=== PATIENT | male | born 1930 | race Caucasian/White ===

== ENCOUNTER 2016-12-24 10:47 | Observation (INO) | payer OTHER ==
[~2016-12-24] VITALS: Ht 175.3 cm; Wt 74.8 kg
[~2016-12-24 10:47] MED LIST: AMIODARONE HCL200 M1 PO; ARICEPT10 M1 PO; CALCIUM + D 5001 TAB PO; CARBIDOPA-LEVO1 EAC7 PO; CHILDREN'S ASPI81 M1 PO; CLOPIDOGREL75 M1 PO; FINASTERIDE5 M1 PO; HEPARIN 2525000 UNI1 IV; LOPRESSOR 25MG25 MG PO; LOPRESSOR 6.26.25 MG PO; METOPROLOL TART25 M1 PO; RETAINE CMC 0.5% OP; SAW PALMETTO S450 MG PO; SEROQUEL 100MG100 MG PO; SEROQUEL 25MG25 MG PO; SIMVASTATIN40 M1 PO; SLOW-MAG71.5 MG PO; SYNTHROID0.025 MG PO; SYNTHROID50 MCG PO; TEARS NATURALE1 EACH OP; VITAMIN D31000 UNI1 PO
--- NOTE | 2016-12-24 10:50 | ED SYNCOPE COMPLAINT ---
History of Present Illness General Chief Complaint: Syncope and Near-Syncope Stated Complaint: SYNCOPAL EPISODE Source: patient Exam Limitations: dementia Vital Signs & Intake/Output Vital Signs & Intake/Output Vital Signs Date Time Temp Pulse Resp B/P Pulse O2 O2 Flow FiO2 Ox Delivery Rate 12/27 1133 82 130/62 12/27 0916 78 130/62 12/27 0827 98.0 76 20 160/88 94 Room Air 12/26 2200 98.2 67 20 150/70 95 Room Air 12/26 1542 98.1 59 18 126/72 96 Room Air ED Intake and Output 12/27 0000 12/26 1200 Intake Total 580 Output Total 100 200 Balance 480 -200 Intake, Oral 580 Output, Urine 100 200 Allergies Coded Allergies: Sulfa (Sulfonamide Antibiotics) (SULFA - ?RXN DOESNT REMEMBER 12/24/16) dipyridamole (From AGGRENOX) (UNKNOWN DOESNT REMEMBER 12/24/16) Reconcile Medications Amiodarone HCl 200 MG TABLET 0.5 TAB PO DAILY HEART (Reported) Aspirin (Children's Aspirin) 81 MG TAB.CHEW 1 TAB PO DAILY HEART/BLOOD ( Reported) Calcium Carbonate/Vitamin D3 (Calcium 500 + D Tablet) (Unknown Strength) TABLET (Unknown Dose) PO DAILY SUPPLEMENT (Reported) Carbidopa/Levodopa (Carbidopa-Levodopa 25-100 Tab) 25 MG-100 MG TABLET 1.5 TAB PO DAILY PARKINSONS (Reported) Cholecalciferol (Vitamin D3) (Vitamin D3) 1,000 UNIT CAPSULE 1 CAP PO DAILY SUPPLEMENT (Reported) Clopidogrel Bisulfate (Clopidogrel) 75 MG TABLET 1 TAB PO DAILY BLOOD THINNER (Reported) Dextran 70/Hypromellose/Pf (Tears Naturale Free Drops) 0.1 %-0.3 % DROPERETTE 2 DROP OP DAILY EYE(S) (Reported) Donepezil HCl (Aricept) 10 MG TABLET 1 TAB PO QHS DEMENTIA (Reported) Finasteride 5 MG TABLET 1 TAB PO DAILY PROSTATE (Reported) Levothyroxine Sodium (Synthroid) 50 MCG TABLET 1 TAB PO DAILY THYROID ( Reported) Magnesium Chloride (Slow-Mag) (Unknown Strength) TABLET.DR 1 TAB PO DAILY SUPPLEMENT (Reported) Metoprolol Tartrate 25 MG TABLET 0.5 TAB PO DAILY HEART (Reported) Midodrine HCl 10 MG TABLET 1 TAB PO BID LOW BP (Reported) Multivitamin W/Iron, Minerals (Spectravite Senior) 1 EACH TABLET 1 TAB PO DAILY SUPPLEMENT (Reported) Quetiapine Fumarate 50 MG TABLET 1 TAB PO TID MENTAL HEALTH (Reported) Saw Mckee Fruit (Saw Mckee) 450 MG CAPSULE 1 CAP PO DAILY Supplement ( Reported) Simvastatin (Simvastatin*) 40 MG TABLET 1 TAB PO QPM CHOLESTEROL (Reported) Triage Nurses Notes Reviewed? yes HPI: This patient is a 86-year-old male with a past medical history including CABG, myocardial infarction, Alzheimer's, Parkinson's, and hypertension who presented to the emergency department today brought in by ambulance accompanied by his and daughter for evaluation of syncopal episode. The patient's reported that he had gotten up to go to the bathroom and made around to the back of the chair when he slid to the floor. At that time he did not lose consciousness. His reported that she helped him up and sat him down in the chair. She left to go get him some orange juice and when she returned he had slid out of the chair and lost consciousness. The patient reported that he was feeling dizzy and shaky just prior to the incident. He reported a mild frontal headache at this time. He denied any visual changes, chest pain, palpitations, difficulty breathing, abdominal pain, nausea, vomiting, or any numbness or tingling in his extremities. The patient's daughter reported that he has been feeling more dizzy than normal recently, but has not had any syncopal episodes similar to this in the past. (CECI BRYANT PA-C) Past History Medical History Any Pertinent Medical History? see below for history Neurological: Alzheimer's disease, Parkinson's disease, vertigo EENT: cataracts, glaucoma Cardiovascular: hypertension, hyperlipidemia, LVH Respiratory: pneumonia Gastrointestinal: BPH diverticulosis Hepatic: NONE Renal: chronic kidney disease (stage 1) Musculoskeletal: osteoarthritis Psychiatric: NONE Endocrine: hypothyroidism, vitamin D deficiency Blood Disorders: anemia Cancer(s): colon/rectal cancer SOCIAL PROBLEMS SPECIALIST/Reproductive: NONE History of MRSA: No History of VRE: No History of CDIFF: No Surgical History Surgical History: CABG, cataract removal (both eyes), hernia repair-incisional, anal fistula repair Psychosocial History Who do you live with Family Services at Home None What is your primary language Colombian Family History Hx Contributory? No (CECI BRYANT PA-C) Review of Systems Review of Systems Constitutional: Reports: see HPI. EENTM: Reports: no symptoms. Respiratory: Reports: no symptoms. Cardiovascular: Reports: no symptoms. GI: Reports: no symptoms. Genitourinary: Reports: no symptoms. Musculoskeletal: Reports: no symptoms. Skin: Reports: no symptoms. Neurological/Psychological: Reports: see HPI. All Other Systems: Reviewed and Negative (CECI BRYANT PA-C) Physical Exam Physical Exam Cranial Nerves: normal hearing, normal speech, PERRL Comments: Well-developed well-nourished person in no acute distress HEENT: Normal EENT exam, head normocephalic, no bony deformities/step-offs of the skull, moist mucous membranes PERRLA bilaterally Nose is atraumatic Neck: Supple, no lymphadenopathy. No midline tenderness Back: Normal inspection Cardiovascular: Regular rate and rhythm with no murmurs, rubs, or gallops. No JVD. No carotid bruits Respiratory: Chest nontender. No respiratory distress. Breath sounds clear to auscultation bilaterally with no wheezes, rales, rhonchi Abdomen: Soft, nontender and nondistended with normoactive bowel sounds and no organomegaly appreciated Extremity: No edema, no calf tenderness to palpation, normal and equal pulses. Neuro: Alert oriented x3, motor sensory normal, cranial nerves II through XII grossly intact. Skin: No appreciable rash on exposed skin, skin is warm and dry. Skin tear, approximately 2 cm in diameter, to the left lateral epicondyle with no active bleeding and no stony erythema or edema. Mild amount of surrounding ecchymosis Psych: Mood and affect is normal Core Measures ACS in differential dx? Yes CVA/TIA Diagnosis: No Severe Sepsis Present: No Septic Shock Present: No (CECI BRYANT PA-C) Progress Differential Diagnosis: AMI, aortic dissection, aortic valve, drug induced syncope, hyperventilation, orthostatic syncope, other valvular disease, pericardial tamponade, pulmonary embolus, seizure, sick sinus syndrome, subarachnoid hem., TIA/CVA, vasodepressor syncope, ventricular tach/fib Plan of Care: Orders Procedure Date/time Status US-RENAL/KIDNEY 12/27 UNK Active PT Evaluate & Treat 12/27 UNK Active Lab Add-on Test 12/27 UNK Active MISTAKE 12/27 UNK Complete Nursing Misc 12/[address] ABD & PELVIS W/O IV CONTRAS 12/27 UNK Active Discontinue Telemetry/Monitor 12/26 UNK Active Current Medications Sig/Rajani Start time Last Medication Dose Stop Time Status Admin Acetaminophen 650 MG Q8P PRN 12/24 1915 AC (Tylenol) Diagnostic Imaging: Viewed by Me: Radiology Read, CT Scan. Discussed w/RAD: Radiology Read, CT Scan. Radiology Impression: PATIENT: CORDELL DOMINIQUE SR PRESENT AGE: 86 PATIENT ACCOUNT NO: [id number] : 31 LOCATION: [facility] ORDERING PHYSICIAN: CECI BRYANT PA-C SERVICE DATE: 12/24/16 EXAM TYPE: RAD - XRY-PORTABLE CHEST XRAY EXAMINATION: XR PORTABLE CHEST CLINICAL INFORMATION: Syncope. Assess for cardiomegaly. COMPARISON: Report from chest radiography 08/09/2015. TECHNIQUE: Portable AP view of the chest was obtained. FINDINGS: The lungs are well expanded. No focal consolidation, pleural effusion, pulmonary edema, or pneumothorax. No evidence of cardiomegaly when adjusting for technical factors. Aortic atherosclerotic calcification. Sternotomy wires. No acute osseous abnormality. IMPRESSION: No acute pulmonary pathology demonstrated. DICTATED BY: DANO LIN MD DATE/TIME DICTATED:12/24/161144 MORTGAGE COUNSELOR:YOBANI DATE/TIME TRANSCRIBED:12/24/161144 CONFIDENTIAL, DO NOT COPY WITHOUT APPROPRIATE AUTHORIZATION. <Electronically signed in Other Vendor System> SIGNED BY: DANO LIN MD 12/24/16 1150, PATIENT: CORDELL DOMINIQUE PRESENT AGE: 86 PATIENT ACCOUNT NO: [id number] : 31 LOCATION: [facility] ORDERING PHYSICIAN: CECI BRYANT PA-C SERVICE DATE: 12/24/16 EXAM TYPE: CAT - CT CERV SPINE WO IV CONTRAST; CT HEAD WO IV CONTRAST EXAMINATION: CT HEAD AND CERVICAL SPINE. CLINICAL INFORMATION: Fall. Evaluate for intracranial hemorrhage. Evaluate for cervical spine fracture. COMPARISON: Brain MRI 01/05/2012. CT head 08/24/2008. TECHNIQUE: Geophysical Prospecting Permit Agent images were obtained. CT acquisition of the head and cervical spine was performed without intravenous administration of contrast. Data was reformatted into multiplanar images at the acquisition workstation. DLP: 934.86 mGy-cm. FINDINGS: Head: There is no acute intracranial hemorrhage or abnormal extra axial collection. No intracranial mass effect or midline shift. Lateral and third ventricles are proportionate to the subarachnoid spaces. There is no hydrocephalus. Ill-defined foci of hypoattenuation are visualized throughout the periventricular white matter that most likely represent a chronic manifestation of small vessel ischemia. Moses-white matter differentiation is grossly preserved and there is no evidence of acute territorial infarct. The calvarium and skull base are intact. Mastoid air cells and middle ear cavities are well aerated. There is paranasal sinus disease within both of the maxillary sinuses and left sphenoid chamber with associated circumferential chronic appearing mucoperiosteal changes. Mild paranasal sinus disease within the ethmoid air cells. Cervical spine: There is slight nonspecific reversal of the cervical lordosis. Vertebral alignment is otherwise maintained in the sagittal dimension. Vertebral body heights are preserved. There is no acute fracture. No abnormal prevertebral soft tissue swelling. There is loss of intervertebral disc height with associated sclerotic degenerative endplate changes at C3-C4 and C5-C6. Grossly there is no evidence of canal compromise. Uncovertebral joint spurring causes no more than mild bilateral neuroforaminal encroachment at C5-C6. Heavily calcified atheromatous plaque involves both carotid bifurcations. Soft tissues of the neck are otherwise unremarkable. Pleural-parenchymal scarring is visualized at the apices of both lungs. IMPRESSION: Head: No acute intracranial hemorrhage. There are numerous chronic small vessel ischemic changes throughout the periventricular white matter. Chronic paranasal sinus disease. Cervical spine: No acute cervical spine fracture. There is degenerative spondylosis at C3 -C4 and C5-C6. Grossly no evidence of canal compromise. Hypertrophic uncovertebral joint osteophytes cause mild bilateral neuroforaminal encroachment at C5-C6. DICTATED BY: FELICITAS MENDOZA MD DATE/TIME DICTATED:12/24/161254 MORTGAGE COUNSELOR:YOBANI DATE/TIME TRANSCRIBED:12/24/161254 CONFIDENTIAL, DO NOT COPY WITHOUT APPROPRIATE AUTHORIZATION. <Electronically signed in Other Vendor System> SIGNED BY: FELICITAS MENDOZA MD 12/24/16 5468 Initial ED EKG: normal axis, normal intervals, RBBB, 58 BPM Comments: 12/24/2016 11:21:30 AM: Dr. Beavers was at the patient's bedside reveals a face-to- face evaluation. (CECI BRYANT PA-C) Departure Departure Disposition: STILL A PATIENT Condition: Stable Clinical Impression Primary Impression: Syncope Qualifiers: Syncope type: unspecified Qualified Code: R55 - Syncope and collapse Referrals: BARTOLO RAMIREZ DO (PCP/Family) Departure Forms: Customer Survey General Discharge Information Admission Note Spoke With: EFE CURRY MD Documentation of Exam: Documentation of any treatments & extenuating circumstances including Concerns Regarding Discharge (functional status, medication knowledge or non-compliance, living conditions, etc.) that warrant an admission rather than observation: [ This patient is an 86-year-old male who presents to the emergency department today for evaluation of a syncopal episode. This patient has a significant cardiac history and no prior syncopal episodes. He should be admitted to the emergency department for telemetry monitoring, cardiology consultation, possible echocardiogram, Trend labs, serial EKGs, serial troponin levels, and close monitoring. Premature discharge could prove medically harmful.] (CECI BRYANT PA-C) Departure Time of Disposition: 1354 Observation Note Spoke With: EFE CURRY MD Physician Advisor Notified: ALEJANDRA DENT MD Patient In: Non-ED OBS Care Area Rationale for Observation: My rational for observation is as follows [TELE MONITOR, SERIAL EKG/TROPONIN, ECHOCARDIOGRAM, CENTENO CONSULTATION, PT EVALUATION]. PA/HIGH HEEL BUILDER Co-Sign Statement Statement: ED Attending supervision documentation- [X] I saw and evaluated the patient. I have also reviewed all the pertinent lab results and diagnostic results. I agree with the findings and the plan of care as documented in the PA's/HIGH HEEL BUILDER's documentation. [X] I have reviewed the ED Record and agree with the PA's/HIGH HEEL BUILDER's documentation. [] Additions or exceptions (if any) to the PAs/HIGH HEEL BUILDER's note and plan are summarized below: [] (SPEEDY BEAVERS MD) Physician Advisor Notified: ALEJANDRA DENT MD Patient In: Non-ED OBS Care Area Rationale for Observation: My rational for observation is as follows [TELE MONITOR, SERIAL EKG/TROPONIN, ECHOCARDIOGRAM, CENTENO CONSULTATION, PT EVALUATION]. PA/HIGH HEEL BUILDER Co-Sign Statement Statement: ED Attending supervision documentation- [X] I saw and evaluated the patient. I have also reviewed all the pertinent lab results and diagnostic results. I agree with the findings and the plan of care as documented in the PA's/HIGH HEEL BUILDER's documentation. [X] I have reviewed the ED Record and agree with the PA's/HIGH HEEL BUILDER's documentation. [] Additions or exceptions (if any) to the PAs/HIGH HEEL BUILDER's note and plan are summarized below: [] (ARACELI MONTEIRO,SPEEDY)
--- NOTE | 2016-12-24 11:20 | NUR ---
SHANIA FROM HOME, PT TO ED S/P C/O DIZZINESS PER , "I WENT TO GET HIM A GLASS OF WATER AND JUICE AND HE SLID OFF THE KITCHEN CHAIR TO THE FLOOR", PT DENIES HEAD STRIKE, ON COUMADIN, HX DEMENTIA, [place], BYPASS SURGERY, HYPOTENSION. CECI OVALLES IN TO EVAL UPON ARRIVAL. DR CHARLES IN TO EVAL AND SPEAK WITH PT, AND DAUGHER.
--- NOTE | 2016-12-24 11:45 | NUR ---
BLOODWORK, BLUE,MULLER,LAV,SST, AND PINK TOP TUBES SENT TO LAB. IVF'S CONTINUE TO INFUSE ORDERED. EKG, PCXR DONE. AND DAUGHTER REMAIN AT BEDSIDE.
--- NOTE | 2016-12-24 11:50 | RADIOLOGY REPORT ---
EXAMINATION: XR PORTABLE CHEST CLINICAL INFORMATION: Syncope. Assess for cardiomegaly. COMPARISON: Report from chest radiography 08/09/2015. TECHNIQUE: Portable AP view of the chest was obtained. FINDINGS: The lungs are well expanded. No focal consolidation, pleural effusion, pulmonary edema, or pneumothorax. No evidence of cardiomegaly when adjusting for technical factors. Aortic atherosclerotic calcification. Sternotomy wires. No acute osseous abnormality. IMPRESSION: No acute pulmonary pathology demonstrated.
[2016-12-24 11:57] LABS: ABSOLUTE BASOPHIL COUNT 0 /CUMM (0.0-0.2); ABSOLUTE EOSINOPHIL COUNT 0.1 /CUMM (0.0-0.7); ABSOLUTE GRANULOCYTE CT 4.4 /CUMM (1.4-6.5); ABSOLUTE LYMPH COUNT 0.4 /CUMM (1.2-3.4); ABSOLUTE MONOCYTE COUNT 0.5 /CUMM (0.10-0.60); BASOPHIL % 0 % (0.0-2.0); GRANULOCYTE % 81.9 % (42.2-75.2); HEMATOCRIT 30.6 % (42-52); MEAN CORPUSCULAR HGB 30.3 PG (27.0-31.0); MEAN CORPUSCULAR HGB CONC 33.9 G/DL (33.0-37.0); MEAN CORPUSCULAR VOLUME 89.3 FL (80.0-94.0); MEAN PLATELET VOLUME 8.8 FL (7.4-10.4); PLATELET COUNT 148 /CUMM (130-400); RED BLOOD CELL CT 3.43 /CUMM (4.70-6.10); WHITE BLOOD CELL COUNT 5.3 /CUMM (4.8-10.8)
[2016-12-24 12:05] LABS: PT 12.2 SEC (9.4-12.5); PTT 30 SEC (25-37)
--- NOTE | 2016-12-24 12:30 | NUR ---
CT COMPLETED. MULTIPLE FAMILY MEMBERS AT BEDSIDE.
--- NOTE | 2016-12-24 13:14 | CT SCAN REPORT ---
EXAMINATION: CT HEAD AND CERVICAL SPINE. CLINICAL INFORMATION: Fall. Evaluate for intracranial hemorrhage. Evaluate for cervical spine fracture. COMPARISON: Brain MRI 01/05/2012. CT head 08/24/2008. TECHNIQUE: Swim Coach images were obtained. CT acquisition of the head and cervical spine was performed without intravenous administration of contrast. Data was reformatted into multiplanar images at the acquisition workstation. DLP: 934.86 mGy-cm. FINDINGS: Head: There is no acute intracranial hemorrhage or abnormal extra axial collection. No intracranial mass effect or midline shift. Lateral and third ventricles are proportionate to the subarachnoid spaces. There is no hydrocephalus. Ill-defined foci of hypoattenuation are visualized throughout the periventricular white matter that most likely represent a chronic manifestation of small vessel ischemia. Moses-white matter differentiation is grossly preserved and there is no evidence of acute territorial infarct. The calvarium and skull base are intact. Mastoid air cells and middle ear cavities are well aerated. There is paranasal sinus disease within both of the maxillary sinuses and left sphenoid chamber with associated circumferential chronic appearing mucoperiosteal changes. Mild paranasal sinus disease within the ethmoid air cells. Cervical spine: There is slight nonspecific reversal of the cervical lordosis. Vertebral alignment is otherwise maintained in the sagittal dimension. Vertebral body heights are preserved. There is no acute fracture. No abnormal prevertebral soft tissue swelling. There is loss of intervertebral disc height with associated sclerotic degenerative endplate changes at C3-C4 and C5-C6. Grossly there is no evidence of canal compromise. Uncovertebral joint spurring causes no more than mild bilateral neuroforaminal encroachment at C5-C6. Heavily calcified atheromatous plaque involves both carotid bifurcations. Soft tissues of the neck are otherwise unremarkable. Pleural-parenchymal scarring is visualized at the apices of both lungs. IMPRESSION: Head: No acute intracranial hemorrhage. There are numerous chronic small vessel ischemic changes throughout the periventricular white matter. Chronic paranasal sinus disease. Cervical spine: No acute cervical spine fracture. There is degenerative spondylosis at C3-C4 and C5-C6. Grossly no evidence of canal compromise. Hypertrophic uncovertebral joint osteophytes cause mild bilateral neuroforaminal encroachment at C5-C6.
--- NOTE | 2016-12-24 14:04 | History & Physical ---
LETICIA MARCIAL MD 12/24/16 5354: General Information and HPI MD Statement: I have seen and personally examined CORDELL DOMINIQUE Elbert NIETO and documented this H&P. The patient is a 86 year old M who presented with a patient stated chief complaint of [syncope]. Source of Information: patient, family Exam Limitations: no limitations History of Present Illness: 86-year-old male PMH of SD sp CABG, parkinson disease, alzheimer disease, HTN, HLD, BPH, was brought in for syncope. While he was trying to go to the bathroom this morning, he felt dizzy and leaned on the recliner, but he slowly slid onto the floor. As per his , he did not lose consciousness but the pt does not really remember the episode, he only remembers "being on the floor and not being able to get up", and prior to that he was feeling dizzy and lightheaded. His then sat him down, and went to get water and juice for him. He appeared pale, with BP 80/40. When she came back, he was again on the floor, and has hit his left forehead on the floor, unconscious. He then complained of frontal headache, which he reports is "not that bad". There was a bruise on the left side of his forehead. He was in cardiac rehab from Nov - May 2016 after open heart surgery Aug 2015. Midodrine was added due to low blood pressure. He reported some chills while IV fluids were being given in the ED. He also reports some blurry vision. Denied fever, chest pain, palpitations, shortness of breath, abdominal pain, nausea, vomiting, shaking, tongue biting, urinary incontinence. Pt lives at home with his , daughter, and borther in law. Had significant smoking hx (from 1955 to 1987, up to 3 ppd). Denies alcohol and drugs. 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 Home Who Do You Live With? spouse Services at Home: None Smoking Status: Former Smoker ETOH Use: denies use Illicit Drug Use: denies illicit drug use Functional Ability Ambulation: independent Review of Systems Review of Systems Constitutional: Reports: chills. Denies: fever. EENTM: Reports: blurred vision. Cardiovascular: Denies: chest pain, palpitations. Respiratory: Reports: cough. Denies: short of breath. GI: Denies: abdominal pain, bloating, constipation, diarrhea. Genitourinary: Denies: dysuria. Exam & Diagnostic Data Last 24 Hrs of Vital Signs/I&O Vital Signs Date Time Temp Pulse Resp B/P Pulse O2 O2 Flow FiO2 Ox Delivery Rate 12/24 1534 66 20 156/80 96 Room Air 12/24 1121 58 131/62 12/24 1115 95 Room Air Room Air 12/24 1109 98.0 58 0 95 Room Air Room Air Intake & Output 12/24 1600 12/24 0800 12/24 0000 Intake Total 1000 Output Total Balance 1000 Intake, IV 1000 Patient 74.843 kg Weight Physical Exam General Appearance Alert, Oriented X3, Cooperative, No Acute Distress Skin dry skin HEENT EOMI, Mucous Membr. moist/pink, bruise on left forehead, pupils equally round and reactive Neck Supple, +2 Carotid Pulse wo Bruit Lymphatic Axillary nl, Cervical nl Cardiovascular heart sounds difficult to assess Lungs pt was not taking deep breaths Abdomen Normal Bowel Sounds, Soft, No Tenderness Neurological Normal Speech, Strength at 5/5 X4 Ext, Normal Tone, Sensation Intact, Cranial Nerves 3-12 NL Extremities No Edema, Normal Pulses Vascular Normal Pulses Last 24 Hrs of Labs/[place]: Laboratory Tests 12/24/16 1355: Urine Color YEL, Urine Clarity CLEAR, Urine pH 6.5, Ur Specific [place] 1.010, Urine Protein TRACE H, Urine Ketones NEG, Urine Nitrite NEG, Urine Bilirubin NEG, Urine Urobilinogen 0.2, Ur Leukocyte Esterase NEG, Ur Microscopic SEDIMENT EXAMINED, Urine RBC RARE, Urine WBC RARE, Ur Epithelial Cells RARE, Urine Hemoglobin NEG, Urine Glucose NEG 12/24/16 1135: Anion Gap 10, Estimated GFR 48 L, BUN/Creatinine Ratio 20.7, Glucose 97, Lactic Acid 1.1, Calcium 8.3 L, Total Bilirubin 0.5, AST 32, ALT 22, Alkaline Phosphatase 46, Troponin I 0.05, Total Protein 6.1 L, Albumin 3.6, Globulin 2.5 , Albumin/Globulin Ratio 1.4, PT 12.2, INR 1.16, APTT 30, CBC w Diff NO MAN DIFF REQ, RBC 3.43 L, MCV 89.3, MCH 30.3, RDW 15.0 H, MPV 8.8, Gran % 81.9 H, Lymphocytes % 8.3 L, Monocytes % 8.8, Eosinophils % 1.0, Basophils % 0 L, Absolute Granulocytes 4.4, Absolute Lymphocytes 0.4 L, Absolute Monocytes 0.5, Absolute Eosinophils 0.1, Absolute Basophils 0, PUBS MCHC 33.9 Microbiology 12/24 1355 URINE ROUT: Urine Culture - RECD Diagnostic Data EKG Results Rate 68 Sinus QTc 504 [place] -59 CXR Results IMPRESSION: No acute pulmonary pathology demonstrated. Other Results Head and Neck CT: No acute cervical spine fracture. There is degenerative spondylosis at C3-C4 and C5-C6. Grossly no evidence of canal compromise. Hypertrophic uncovertebral joint osteophytes cause mild bilateral neuroforaminal encroachment at C5-C6. Assessment/Plan Assessment: 86-year-old male PMH of SD sp CABG, parkinson disease, alzheimer disease, HTN, HLD, BPH, hypothyroidism, was brought in for syncope. VS WNL, labs unremarkable. CT and CXR showed no acute change. Pt admitted to tele for observation. # Syncope * Follow Repeat EKG and trop * Consult Dr. Ridley * Continue midodrine with holding parameters * Orthostats * Tele monitor # Dementia * Continue Donepezil 10 mg daily * Continue Quetiapine 50 mg tid # Parkinson * Continue carbidopa-levodopa # HTN * Continue metoprolol 12.5 mg daily # HLD * Continue simvastain 40 mg daily # BPH * Continue finasteride 5 mg daily # Hypothyroid * Continue levothyroxine 50 mcg daily # Continue home meds * Slowmag * Vit D 3 * Ca+D * amiodarone 100 mg daily Diet: Heart healthy DVT ppx: mech and pharm FULL CODE As Ranked By This Provider Problem List: 1. Syncope Qualifiers Syncope type: unspecified Qualified Code: R55 - Syncope and collapse Core Measures/Miscellaneous Acute Coronary Syndrome ACS Diagnosis: No Cerebrovascular Accident CVA/TIA Diagnosis: No Congestive Heart Failure CHF Diagnosis: No Venous Thromboembolism VTE Risk Factors: Age > 40 VTE Prophylaxis Ordered Inpt: Mech & Pharm No Mech VTE prophylaxis d/t: No contraindications No VTE Pharm Prophylaxis d/t: No contraindications VTE Diagnosis: No VTE Type: NONE VTE Confirmed by (Test): NONE Severe Sepsis Severe Sepsis Present: No Septic Shock Septic Shock Present: No Miscellaneous Documentation Attending Case Discussed With: DARLENE JULIO M.D Primary Care Physician: BARTOLO RAIMREZ DO Patient sees these Specialists Dr Ridley cardiology Dr Calvillo neurology Level of Patient Care: Telemetry DONOVANNICK 12/24/16 1430: General Information and HPI Allergies/Medications Allergies: Coded Allergies: Sulfa (Sulfonamide Antibiotics) (SULFA - ?RXN DOESNT REMEMBER 12/24/16) dipyridamole (From AGGRENOX) (UNKNOWN DOESNT REMEMBER 12/24/16) Home Med list Amiodarone HCl 200 MG TABLET 0.5 TAB PO DAILY HEART (Reported) Aspirin (Children's Aspirin) 81 MG TAB.CHEW 1 TAB PO DAILY HEART/BLOOD ( Reported) Calcium Carbonate/Vitamin D3 (Calcium 500 + D Tablet) (Unknown Strength) TABLET (Unknown Dose) PO DAILY SUPPLEMENT (Reported) Carbidopa/Levodopa (Carbidopa-Levodopa 25-100 Tab) 25 MG-100 MG TABLET 1.5 TAB PO DAILY PARKINSONS (Reported) Cholecalciferol (Vitamin D3) (Vitamin D3) 1,000 UNIT CAPSULE 1 CAP PO DAILY SUPPLEMENT (Reported) Clopidogrel Bisulfate (Clopidogrel) 75 MG TABLET 1 TAB PO DAILY BLOOD THINNER (Reported) Dextran 70/Hypromellose/Pf (Tears Naturale Free Drops) 0.1 %-0.3 % DROPERETTE 2 DROP OP DAILY EYE(S) (Reported) Donepezil HCl (Aricept) 10 MG TABLET 1 TAB PO QHS DEMENTIA (Reported) Finasteride 5 MG TABLET 1 TAB PO DAILY PROSTATE (Reported) Levothyroxine Sodium (Synthroid) 50 MCG TABLET 1 TAB PO DAILY THYROID ( Reported) Magnesium Chloride (Slow-Mag) (Unknown Strength) TABLET.DR 1 TAB PO DAILY SUPPLEMENT (Reported) Metoprolol Tartrate 25 MG TABLET 0.5 TAB PO DAILY HEART (Reported) Midodrine HCl 10 MG TABLET 1 TAB PO BID LOW BP (Reported) Multivitamin W/Iron, Minerals (Spectravite Senior) 1 EACH TABLET 1 TAB PO DAILY SUPPLEMENT (Reported) Quetiapine Fumarate 50 MG TABLET 1 TAB PO TID MENTAL HEALTH (Reported) Saw [place] (Unknown Strength) CAPSULE (Unknown Dose) PO DAILY SUPPLEMENT ( Reported) Simvastatin (Simvastatin*) 40 MG TABLET 1 TAB PO QPM CHOLESTEROL (Reported) Resident Review Statement Resident Statement: examined this patient, discussed with help desk internship, agreed with help desk internship, discussed with family, reviewed EMR data (avail) Other Findings: This is an 86-year-old gentleman with past medical history significant for CAD ( SD status post CABG), Parkinson disease, Alzheimer's disease, hypertension, hyperlipidemia, BPH who was brought to the hospital after a syncopal episode. Please see above for more details. Vital signs on admission: Temperature 90.8, pulse rate 58, blood pressure 130/62 , oxygen saturation 95% on room air. Physical exam on admission: AAO 3, no acute distress, cooperative, HEENT: PERRLA, EOMI, ecchymosis and swelling noted on left forehaed. Mucous Membr. moist/pink. Neck: Supple, no carotid bruit. CV: S1, S2 ausculateted, no murmurs. Lungs: CTABL, Abdomen: NL BS, NS , NT Neurology:non focal, NL speech, CN 3-12 intact. Strength at 5/5 X4 Ext, Normal Tone, Sensation Intact. Ext: NL pulses, no edema. Available labs and Dx data reviewed. Problem list: * Syncope * H/O parkinson's, Dementia * HTN, HLD * BPH * Hypothyroidism Plan: * cardiac monitor technician * Fall precuations * Vitals & orthostatics q shift * Trend tropnins and EKG * Echo * Check [place] B12, TSH * C/W home medication of midodrine; with holding prameters * C/W home medications of Donepezil, Carbidopa/Levodopa, Metoprolol, Finasteride ,levothyroxine, amiodarone * Simvastatin is not available in our pharmacy will replace with equivalent dose of Atorvastatin. * DVT PPX: at all times. * Full code. 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 Brought in by family after 2 episodes of syncope at home. One episode was associated with complete loss of consciousness. reported patient was markedly hypertensive at that time. He wants to go to started on midodrine autonomic dysfunction and he has required increase in the dose subsequently. Is currently alive and oriented. He has no focal deficits on examination. He does not appear dehydrated. Family reports good appetite. At a time of the episode at home he had been sitting for only a few minutes before getting up to use the bathroom. It appears that the episodes may be related to orthostatic hypotension from his autonomic dysfunction. Recommendations: -Monitor patient on the telemetry service to rule out underlying arrhythmias. -Following hydration check orthostatic blood pressure daily. -Cardiology evaluation appreciated. Acute compression stockings to help prevent significant orthostatic blood pressure changes. May consider changing the dose of his midodrine if significant changes are noted. -Obtain echocardiogram to rule out underlying structural heart disease. -Fall precautions.
--- NOTE | 2016-12-24 14:29 | NUR ---
PT ABLE TO USE URINAL WITH ASSIST OF FAMILY, URINE SENT TO LAB BY JEWEL ADHIKARI. HOUSE STAFF AT BEDSIDE FOR EVAL, 2ND LACTIC ACID NOT NEEDED PER HOUSE STAFF.
--- NOTE | 2016-12-24 14:36 | Cons- Cardiology ---
General Information and HPI Consulting Request Date of Consult: 12/24/16 Requested By: DARLENE JULIO M.D Reason for Consult: Syncope Source of Information: patient, family History of Present Illness: The patient is an 86-year-old male who is well-known to me. He is about a year or so post single-vessel bypass surgery. Today, at home, while rising to go to the bathroom, the patient walked around his recliner chair, became significantly lightheaded and dizzy and slid to the floor. He was helped back to the chair by his . His left the room and came back and found him on the floor unresponsive. During the initial episode, the patient did not completely lose consciousness. According to the patient's family, when his heart rate and blood pressure were checked, he was bradycardic with a heart rate in the 40s and his blood pressure was 80/50. At the present time, the patient is awake and alert and denies any other symptoms. He denies any other symptoms during the episode. He notes that since the episode he has felt fatigued, washed out, etc. As far as I can discern, he has had no other recent episodes of presyncope or syncope. Allergies/Medications Allergies: Coded Allergies: Sulfa (Sulfonamide Antibiotics) (SULFA - ?RXN 01/07/16) aspirin (From AGGRENOX) (UNKNOWN 01/07/16) dipyridamole (From AGGRENOX) (UNKNOWN 01/07/16) Home Med List: Amiodarone Hydrochloride (Amiodarone) 200 MG TAB 0.5 TAB PO DAILY HEART ( Reported) Aspirin (Children's Aspirin) 81 MG TAB 1 TAB PO DAILY HEART HEALTH (Reported) Carbidopa/Levodopa (Carbidopa-Levodopa 25-100 Tab) 25 MG/100 MG TAB 1.5 TAB PO TID PARKINSONS (Reported) Cholecalciferol (Vitamin D3) 1,000 IU TAB 1 TAB PO DAILY SUPPLEMENT (Reported ) CLOPIDOGREL BISULFATE (Clopidogrel) 75 MG TAB 1 TAB PO DAILY BLOOD THINNER ( Reported) Dextran/Hypromellose (Tears Naturale 15 Ml) 15 ML GLEN 2 DRP OT DAILY EYE ( Reported) DONEPEZIL HCL (Donepezil HCl) 10 MG TAB 1 TAB PO AT BEDTIME DEMENTIA ( Reported) Finasteride 5 MG TAB 1 TAB PO DAILY PROSTATE (Reported) Levothyroxine Sodium (Synthroid) 0.05 MG TAB 0.05 MG PO DAILY AC THYROID ( Reported) MAGNESIUM CHLORIDE (Slow-Mag 106 MG-186.5 MG-64 MG) 1 ECT ECT 1 TAB PO DAILY SUPPLEMENT (Reported) Metoprolol Tartrate 25 MG TABLET 0.5 TAB PO DAILY HEART (Reported) Quetiapine Fumarate (Seroquel) 25 MG TAB 1 TAB PO TID MENTAL HEALTH (Reported ) Simvastatin 40 MG TAB 1 TAB PO QPM CHOLESTEROL (Reported) Past History Travel History Traveled to [place] past 21 day No Medical History Neurological: Alzheimer's disease, Parkinson's disease, vertigo EENT: cataracts, glaucoma Cardiovascular: hypertension, hyperlipidemia, LVH Respiratory: pneumonia Gastrointestinal: BPH diverticulosis Hepatic: NONE Renal: chronic kidney disease (stage 1) Musculoskeletal: osteoarthritis Psychiatric: NONE Endocrine: hypothyroidism, vitamin D deficiency Blood Disorders: anemia Cancer(s): colon/rectal cancer 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 spouse Services at Home: None ETOH Use: denies use Illicit Drug Use: denies illicit drug use Exam & Diagnostic Data Vital Signs and I&O Vital Signs Date Time Temp Pulse Resp B/P Pulse O2 O2 Flow FiO2 Ox Delivery Rate 12/24 1121 58 131/62 12/24 1115 95 Room Air Room Air 12/24 1109 98.0 58 0 95 Room Air Room Air Intake & Output 12/24 1600 12/24 0800 12/24 0000 12/23 1600 12/23 0800 12/23 0000 Intake Total 1000 Output Total Balance 1000 Intake, IV 1000 Patient 165 lb Weight Physical Exam: General: Well-developed, well-nourished person, alert, no acute distress HEENT: Normal Neck: Supple, no lymphadenopathy. JVP normal; carotid upstroke normal bilaterally Cardiovascular: Regular rate and rhythm; 1/6 systolic murmur left sternal border. Respiratory: Chest nontender. No respiratory distress. Breath sounds clear to auscultation bilaterally with no wheezes, rales, rhonchi Abdomen: Soft, nontender and nondistended with normoactive bowel sounds and no organomegaly appreciated Extremity: No edema, no calf tenderness to palpation, normal and equal pulses. Neuro: Nonfocal Skin: Normal Labs/[place] Results: Laboratory Tests 12/24 12/24 1355 1351 Chemistry Lactic Acid Cancelled Urines Urine Color (YEL,AMB,STR) YEL Urine Clarity (CLEAR) CLEAR Urine pH (5.0 - 8.0) 6.5 Ur Specific [place] (1.001 - 1.035) 1.010 Urine Protein (NEG,<30 MG/DL) TRACE H Urine Ketones (NEG) NEG Urine Nitrite (NEG) NEG Urine Bilirubin (NEG) NEG Urine Urobilinogen (0.1 - 1.0 EU/dl) 0.2 Ur Leukocyte Esterase (NEG) NEG Ur Microscopic SEDIMENT EXAMINED Urine RBC (0 - 5 /HPF) RARE Urine WBC (0 - 2 /HPF) RARE Ur Epithelial Cells (NONE,FEW) RARE Urine Hemoglobin (NEG) NEG Urine Glucose (N MG/DL) NEG 12/24 1135 Chemistry Sodium (137 - 145 mmol/L) 135 L Potassium (3.5 - 5.1 mmol/L) 4.6 Chloride (98 - 107 mmol/L) 100 Carbon Dioxide (22 - 30 mmol/L) 25 Anion Gap (5 - 16) 10 BUN (9 - 20 mg/dL) 29 H Creatinine (0.7 - 1.2 mg/dL) 1.4 H Estimated GFR (>60 ml/min) 48 L BUN/Creatinine Ratio (7 - 25 %) 20.7 Glucose (65 - 99 mg/dL) 97 Lactic Acid (0.7 - 2.1 mmol/L) 1.1 Calcium (8.4 - 10.2 mg/dL) 8.3 L Total Bilirubin (0.2 - 1.3 mg/dL) 0.5 AST (17 - 59 U/L) 32 ALT (21 - 72 U/L) 22 Alkaline Phosphatase (< 127 U/L) 46 Troponin I (<0.11 ng/ml) 0.05 Total Protein (6.3 - 8.2 g/dL) 6.1 L Albumin (3.5 - 5.0 g/dL) 3.6 Globulin (1.9 - 4.2 gm/dL) 2.5 Albumin/Globulin Ratio (1.1 - 2.2 %) 1.4 Coagulation PT (9.4 - 12.5 SEC) 12.2 INR (0.90 - 1.17) 1.16 APTT (25 - 37 SEC) 30 Hematology CBC w Diff NO MAN DIFF REQ WBC (4.8 - 10.8 /CUMM) 5.3 RBC (4.70 - 6.10 /CUMM) 3.43 L Hgb (14.0 - 18.0 G/DL) 10.4 L Hct (42 - 52 %) 30.6 L MCV (80.0 - 94.0 FL) 89.3 MCH (27.0 - 31.0 PG) 30.3 RDW (11.5 - 14.5 %) 15.0 H Plt Count (130 - 400 /CUMM) 148 MPV (7.4 - 10.4 FL) 8.8 Gran % (42.2 - 75.2 %) 81.9 H Lymphocytes % (20.5 - 51.1 %) 8.3 L Monocytes % (1.7 - 9.3 %) 8.8 Eosinophils % (0 - 5 %) 1.0 Basophils % (0.0 - 2.0 %) 0 L Absolute Granulocytes (1.4 - 6.5 /CUMM) 4.4 Absolute Lymphocytes (1.2 - 3.4 /CUMM) 0.4 L Absolute Monocytes (0.10 - 0.60 /CUMM) 0.5 Absolute Eosinophils (0.0 - 0.7 /CUMM) 0.1 Absolute Basophils (0.0 - 0.2 /CUMM) 0 PUBS MCHC (33.0 - 37.0 G/DL) 33.9 Assessment/Plan Assessment/Plan Assessment: 1. Syncopal episode-by history, the symptoms are likely related to a vasovagal event. In view of the patient's history of Parkinson's disease, etc., the possibility of significant orthostasis also needs to be excluded. 2. History of coronary artery disease, status post single-vessel bypass surgery 3. History of hypertension 4. Hyperlipidemia 5. Thyroidism 6. Parkinson's disease 7. Alzheimer's dementia line 8. Mild normocytic anemia 9. Mild chronic renal insufficiency 10. Vitamin D deficiency Recommendations: -The patient should be monitored on telemetry for 24 hours to rule out the possibility of arrhythmia -Check troponin 2 -Check orthostatic heart rate and blood pressure every shift 3 -Consider echocardiogram if possible -Recheck TSH and B12 levels -Please have the patient fitted for support stockings if appropriate -Further plans after the above Consult Acknowledgment - Thank you for your consult request.
--- NOTE | 2016-12-24 15:18 | NUR ---
PT ASSIGNED ROOM 180-2
--- NOTE | 2016-12-24 15:25 | NUR ---
SEEN BY HOUSE STAFF
--- NOTE | 2016-12-24 15:40 | NUR ---
REPORT REC'D PATIENT RESTING QUIETLY FAMILY AT BEDSIDE MONITOR SR W/ 1ST HB GIVEN TYLENOL 650MG FOR C/O H/A DENIES OTHER COMPLAINTS
[2016-12-24] MEDS ORDERED: MIDODRINE HCL10 M1 PO (16:02)
[2016-12-24] MEDS ORDERED: QUETIAPINE FUMA50 M1 PO (16:10)
--- NOTE | 2016-12-24 16:40 | NUR ---
REPORT GIVEN TO TELEMETRY
[2016-12-24] MEDS ORDERED: CALCIUM 500 +1 EAC5 PO (16:57)
[2016-12-24] MEDS ORDERED: SPECTRAVITE SE1 EACH PO (16:57)
[2016-12-24] MEDS ORDERED: SAW PALMETTO160 M2 PO (16:59)
[2016-12-24 17:34] VITALS: BP 165/79
[2016-12-24 22:00] VITALS: BP 162/70
[2016-12-25 00:17] VITALS: BP 140/60
[2016-12-25 08:01] VITALS: BP 174/80
--- NOTE | 2016-12-25 08:34 | PN- Housestaff ---
DIVINE MONTEIRO,CALEB 12/25/16 0833: Subjective Follow-up For: Syncope Dementia Parkinson's HTN/HLD Tele-Events Since Last Visit: SR, HR 60s-70s. Subjective: Patient seen and examined at bedside this AM. He is sitting in bed reading the newspaper and offers no complaints. He denies chest pain, palpiations or weakness. He did mention that about 10 minutes prior to my interview, patient was ambulated by a tech and got severely dizzy, requiring him to be returned to bed. Review of Systems Constitutional: Denies: chills, fever, malaise. EENTM: Denies: visual changes, hearing changes, nasal congestion. Cardiovascular: Denies: chest pain, palpitations. Respiratory: Denies: cough, short of breath. Gastrointestinal: Denies: abdominal pain. Genitourinary: Denies: dysuria. Musculoskeletal: Denies: back pain. Skin: Denies: rash. Neurological/Psychological: Reports: see HPI. Denies: confusion, headache, tingling. Hematologic/Endocrine: Denies: bruising, bleeding. Objective Last 24 Hrs of Vital Signs/I&O Vital Signs Date Time Temp Pulse Resp B/P Pulse O2 O2 Flow FiO2 Ox Delivery Rate 12/25 0955 70 172/74 12/25 0915 98.1 72 20 174/80 12/25 0915 98.1 72 20 174/80 12/25 0801 98.1 72 20 174/80 92 12/25 0017 98.1 68 20 140/60 94 Room Air 12/24 2200 73 162/70 12/24 2007 Room Air Room Air 12/24 1734 97.8 63 18 165/79 94 Room Air 12/24 1534 66 20 156/80 96 Room Air Intake & Output 12/25 1600 12/25 0800 12/25 0000 Intake Total 240 450 Output Total 150 Balance 90 450 Intake, Oral 240 450 Output, Urine 150 Patient 165 lb Weight Physical Exam General Appearance: Alert, Oriented X3, Cooperative, No Acute Distress Skin: No Significant Lesion, Dry HEENT: PERRLA, EOMI, Bruise on left forehead Neck: Supple, +2 Carotid Pulse wo Bruit Lymphatic: Axillary nl, Cervical nl Cardiovascular: Normal S1, Normal S2 Lungs: Normal Air Movement Abdomen: Normal Bowel Sounds, Soft, No Tenderness Neurological: Normal Speech, Strength at 5/5 X4 Ext, Normal Tone, Cranial Nerves 3-12 NL Extremities: No Clubbing, No Cyanosis, No Edema Vascular: Pulses Symmetrical Current Medications: Current Medications Sig/Rajani Start time Last Medication Dose Route Stop Time Status Admin Acetaminophen 650 MG Q8P PRN 12/24 1915 AC PO Acetaminophen 0 .STK-MED ONE 12/24 1538 DC PO Amiodarone HCl 100 MG DAILY 12/25 1000 AC 12/25 PO 0915 Aspirin 81 MG DAILY 12/25 1000 AC 12/25 PO 0915 Atorvastatin Calcium 20 MG 1700 12/24 1700 AC 12/24 PO 2203 Carbidopa/Levodopa 1.5 TAB TID 12/24 2200 AC 12/25 PO 0917 Cholecalciferol 1,000 IU DAILY 12/25 1000 AC 12/25 PO 0916 Clopidogrel Bisulfate 75 MG DAILY 12/25 1000 AC 12/25 PO 0915 Donepezil HCl 10 MG DAILY 12/25 1000 AC 12/25 PO 0915 Finasteride 5 MG DAILY 12/25 1000 AC 12/25 PO 0916 Levothyroxine Sodium 0.05 MG DAILY AC 12/25 0700 AC 12/25 PO 0600 Magnesium Chloride 64 MG DAILY 12/25 1000 AC 12/25 PO 0916 Metoprolol Tartrate 12.5 MG DAILY 12/25 1000 AC 12/25 PO 0915 Midodrine 10 MG BID 12/24 2200 AC 12/24 PO 2210 Patient Medication 1 UNIT ONE NR 12/24 1645 [facility] ED 12/24 1700 Patient Medication 1 UNIT ONE NR 12/24 1645 [facility] ED 12/24 1700 Quetiapine Fumarate 50 MG TID 12/24 2200 AC 12/25 PO 0916 Last 24 Hrs of Lab/Corby Results Last 24 Hrs of Labs/Mics: Laboratory Tests 12/25/16 0823: Troponin I 0.06 12/24/16 1852: Troponin I 0.06 12/24/16 1355: Urine Color YEL, Urine Clarity CLEAR, Urine pH 6.5, Ur Specific [place] 1.010, Urine Protein TRACE H, Urine Ketones NEG, Urine Nitrite NEG, Urine Bilirubin NEG, Urine Urobilinogen 0.2, Ur Leukocyte Esterase NEG, Ur Microscopic SEDIMENT EXAMINED, Urine RBC RARE, Urine WBC RARE, Ur Epithelial Cells RARE, Urine Hemoglobin NEG, Urine Glucose NEG 12/24/16 1351: Lactic Acid Cancelled Microbiology 12/24 1355 URINE ROUT: Urine Culture - RES Orders Radiology Findings: IMPRESSION: Head: No acute intracranial hemorrhage. There are numerous chronic small vessel ischemic changes throughout the periventricular white matter. Chronic paranasal sinus disease. Cervical spine: No acute cervical spine fracture. There is degenerative spondylosis at C3-C4 and C5-C6. Grossly no evidence of canal compromise. Hypertrophic uncovertebral joint osteophytes cause mild bilateral neuroforaminal encroachment at C5-C6. Miscellaneous Findings: CXR: IMPRESSION: No acute pulmonary pathology demonstrated. Assessment/Plan Assessment: Mr. Moreno is a pleasnt 86-year-old male PMH of [place] sp CABG, parkinson disease, alzheimer disease, HTN, HLD, BPH and hypothyroidism who was brought in for syncope. In the ED: VS WNL, labs unremarkable. CT head and CXR showed no acute change. Pt admitted to [facility] for observation. Below is the current management: # Syncope * ACS ruled out with EKG/trop negative x 4, patient asymptomatic without chest pain/palpitations * No arrythmia noted while overnight on property controller * Cardio consult appreciated, f/u rec's * Continue midodrine with holding parameters * Orthostats checked this AM and negative * Echo pending, f/u results * Compression stockings * TSH high to 9.7 but FT4 normal (follow up outpatient with PCP, consider euthyroid sick syndrome) and B12 normal to 392 * Patient did endorse dizziness on ambulation, consideration for monitoring patient one more day for further episodes # Dementia * Continue Donepezil 10 mg daily * Continue Quetiapine 50 mg tid # Parkinson * Continue carbidopa-levodopa # HTN * Continue metoprolol 12.5 mg daily # HLD * Continue simvastain 40 mg daily # BPH * Continue finasteride 5 mg daily # Hypothyroid * Continue levothyroxine 50 mcg daily # Continue home meds * Slowmag * Vit D 3 * Ca+D * amiodarone 100 mg daily Diet: Heart healthy DVT ppx: mech and pharm FULL CODE Problem List: 1. Syncope 2. Skin abrasion 3. Full code status 4. DVT prophylaxis 5. H/O Parkinson's disease 6. Hyperlipidemia Pain Ratin Pain Location: n/a Pain Goal: Remain pain free Pain Plan: MIld pain pathway Tomorrow's Labs & Rationales: CBC (trend anemia), BEP (watch renal function) PAYAL JULIO MDMANINavin 12/25/16 0931: Attending MD Review Statement Attending Statement Attending MD Statement: examined this patient, discuss w/resident/PA/TOOL CHECKER, agreed w/resident/PA/TOOL CHECKER, reviewed EMR data (avail), discussed with nursing, discussed with case mgmt, amended to note Attending Assessment/Plan: Patient seen and examined. Resting comfortably not in any acute distress. Alert and oriented 3. Denies chest pain or palpitations. Denies shortness of breath. No events overnight reported by nursing staff. On telemetry he was in sinus rhythm with no events noted. He is afebrile and hemodynamically stable. Orthostatic vitals were negative yesterday. Recommendations: -Repeat orthostatic vitals today. -Mobilize patient. -Follow-up echocardiogram is recommended by the cardiology service. -If he remains hemodynamically stable with no further syncope and no events on telemetry monitoring as he may be discharged home once cleared by the cardiology service. -Family was educated regarding lifestyle modifications such as arises slowly and end-stage is from supine to standing position, avoiding straining and stay well hydrated. -Patient will be provided with prescriptions for waist high compression stockings upon discharge.
[2016-12-25 09:55] VITALS: BP 172/74
[2016-12-25 13:48] VITALS: BP 126/70
--- NOTE | 2016-12-25 14:46 | PN- Cardiology ---
Subjective Subjective: The patient is still having postural dizziness. He was unable to walk further than to the doorway today before he got dizzy, and this was with assistance. Otherwise he has no complaints of chest pain, shortness of breath, palpitations. He is in sinus rhythm on the monitor with no significant arrhythmias. Objective Vital Signs and I&Os Vital Signs Date Time Temp Pulse Resp B/P Pulse O2 O2 Flow FiO2 Ox Delivery Rate 12/25 1348 126/70 12/25 0955 70 172/74 12/25 0915 98.1 72 20 174/80 12/25 0915 98.1 72 20 174/80 12/25 0801 98.1 72 20 174/80 92 12/25 0017 98.1 68 20 140/60 94 Room Air 12/24 2200 73 162/70 12/24 2007 Room Air Room Air 12/24 1734 97.8 63 18 165/79 94 Room Air 12/24 1534 66 20 156/80 96 Room Air Intake & Output 12/25 1600 12/25 0800 12/25 0000 12/24 1600 12/24 0800 12/24 0000 Intake Total 800 103 270 1374 Output Total 600 150 Balance 200 90 450 1000 Intake, IV 1000 Intake, Oral 800 240 450 Output, Urine 600 150 Patient 165 lb 165 lb Weight Physical Exam: He is in no distress. HEENT exam is normal Chest is clear Heart is regular with no murmurs Extremities no edema Current Medications: Current Medications Sig/Rajani Start time Last Medication Dose Route Stop Time Status Admin Acetaminophen 650 MG Q8P PRN 12/24 1915 AC PO Acetaminophen 0 .STK-MED ONE 12/24 1538 DC PO Amiodarone HCl 100 MG DAILY 12/25 1000 AC 12/25 PO 0915 Aspirin 81 MG DAILY 12/25 1000 AC 12/25 PO 0915 Atorvastatin Calcium 20 MG 1700 12/24 1700 AC 12/24 PO 2203 Carbidopa/Levodopa 1.5 TAB TID 12/24 2200 AC 12/25 PO 916 Cholecalciferol 1,000 IU DAILY 12/25 1000 AC 12/25 PO 09 Clopidogrel Bisulfate 75 MG DAILY 12/25 1000 AC 12/25 PO 0915 Donepezil HCl 10 MG DAILY 12/25 1000 AC 12/25 PO 0915 Finasteride 5 MG DAILY 12/25 1000 AC 12/25 PO 09 Levothyroxine Sodium 0.05 MG DAILY AC 12/25 0700 AC 12/25 PO 0600 Magnesium Chloride 64 MG DAILY 12/25 1000 AC 12/25 PO 0916 Metoprolol Tartrate 12.5 MG DAILY 12/25 1000 AC 12/25 PO 0915 Midodrine 10 MG BID 12/24 2200 12/24 PO 2210 Patient Medication 1 UNIT ONE NR 12/24 1645 [facility] ED 12/24 1700 Patient Medication 1 UNIT ONE NR 12/24 1645 [facility] ED 12/24 1700 Quetiapine Fumarate 50 MG TID 12/24 220 12/25 PO 0916 Results Last 48 Hrs of Labs/Mics: Laboratory Tests 12/25/16 0823: Troponin I 0.06 12/24/16 1852: Troponin I 0.06 12/24/16 1355: Urine Color YEL, Urine Clarity CLEAR, Urine pH 6.5, Ur Specific [place] 1.010, Urine Protein TRACE H, Urine Ketones NEG, Urine Nitrite NEG, Urine Bilirubin NEG, Urine Urobilinogen 0.2, Ur Leukocyte Esterase NEG, Ur Microscopic SEDIMENT EXAMINED, Urine RBC RARE, Urine WBC RARE, Ur Epithelial Cells RARE, Urine Hemoglobin NEG, Urine Glucose NEG 12/24/16 1351: Lactic Acid Cancelled 12/24/16 1135: Anion Gap 10, Estimated GFR 48 L, BUN/Creatinine Ratio 20.7, Glucose 97, Lactic Acid 1.1, Calcium 8.3 L, Total Bilirubin 0.5, AST 32, ALT 22, Alkaline Phosphatase 46, Troponin I 0.05, Total Protein 6.1 L, Albumin 3.6, Globulin 2.5 , Albumin/Globulin Ratio 1.4, Vitamin B12 392, TSH 9.710 H, Free T4 1.26, PT 12.2, INR 1.16, APTT 30, CBC w Diff NO MAN DIFF REQ, RBC 3.43 L, MCV 89.3, MCH 30.3, RDW 15.0 H, MPV 8.8, Gran % 81.9 H, Lymphocytes % 8.3 L, Monocytes % 8.8, Eosinophils % 1.0, Basophils % 0 L, Absolute Granulocytes 4.4, Absolute Lymphocytes 0.4 L, Absolute Monocytes 0.5, Absolute Eosinophils 0.1, Absolute Basophils 0, PUBS MCHC 33.9 12/24/16 0045: Troponin I 0.07 Assessment/Plan Assessment/Plan The patient has not had any cardiac events. He has no arrhythmias. His enzymes are negative. He still has supine hypertension and postural dizziness. He is only on small dose of metoprolol. He was on amlodipine at home which has been discontinued. His BUN and creatinine were slightly elevated on admission and should be repeated. We will keep him on the monitor one more day and try again to ambulate him. He may need short-term rehabilitation on discharge. Continue telemetry? Yes
--- NOTE | 2016-12-25 17:45 | Patient Discharge Instructions ---
Discharge Instructions General Discharge Information You were seen/treated for: - Syncope - Hematuria Special Instructions: - Please follow up with your PCP within a week of discharge. - Please return to the hospital if her symptoms not improve/worsen. - Please follow up with urology, Dr. Bucio, for cystoscopy to further evaluate hematuria. - Please stop taking plavix due to the hematuria. Please follow-up with your metallographic technician, Dr. Ridley within a week of discharge. Diet Continue normal diet: Yes Recommended Diet: Heart Healthy Activity Additional ACTIVITY Info: As tolerated Acute Coronary Syndrome Inclusion Criteria At DC or during hospital stay patient has or had the following: ACS DIAGNOSIS No Discharge Core Measures Meds if any: Prescribed or Continued at Discharge Meds if any: NOT Prescribed or Continued at Discharge Congestive Heart Failure Inclusion Criteria At DC or during hospital stay patient has or had the following: CHF DIAGNOSIS No Discharge Core Measures Meds if any: Prescribed or Continued at Discharge Meds if any: NOT Prescribed or Continued at Discharge Cerebrovascular accident Inclusion Criteria At DC or during hospital stay patient has or had the following: CVA/TIA Diagnosis No Discharge Core Measures Meds if any: Prescribed or Continued at Discharge Meds if any: NOT Prescribed or Continued at Discharge Venous thromboembolism Inclusion Criteria VTE Diagnosis No VTE Type NONE VTE Confirmed by (Test) NONE Discharge Core Measures - Per Current guidelines, there needs to be overlap - treatment for the first 5 days of Warfarin therapy. - If discharged on Warfarin prior to 5 days of - overlap therapy, the patient will need to be - assessed for post discharge needs including - *Post discharge parental anticoagulation - *Warfarin and/or parental anticoagulation education - *Follow up date to check INR post discharge At least 5 days overlap therapy as Inpatient No Meds if any: Prescribed or Continued at Discharge Note: Overlap Therapy is Warfarin and Anticoagulant Meds if any: NOT Prescribed or Continued at Discharge
[2016-12-25 18:37] VITALS: BP 120/76
[2016-12-25] MEDS ORDERED: SAW PALMETTO450 M1 PO (19:17)
[2016-12-26 00:19] VITALS: BP 120/70
[2016-12-26 08:00] LABS: ABSOLUTE BASOPHIL COUNT 0 /CUMM (0.0-0.2); ABSOLUTE EOSINOPHIL COUNT 0.2 /CUMM (0.0-0.7); ABSOLUTE GRANULOCYTE CT 5.2 /CUMM (1.4-6.5); ABSOLUTE MONOCYTE COUNT 0.6 /CUMM (0.10-0.60); BASOPHIL % 0.3 % (0.0-2.0); EOSINOPHIL % 2.5 % (0-5); GRANULOCYTE % 73.5 % (42.2-75.2); HEMATOCRIT 35.5 % (42-52); MEAN CORPUSCULAR HGB 30.1 PG (27.0-31.0); MEAN CORPUSCULAR HGB CONC 33.5 G/DL (33.0-37.0); MEAN CORPUSCULAR VOLUME 89.9 FL (80.0-94.0); MEAN PLATELET VOLUME 9.3 FL (7.4-10.4); PLATELET COUNT 165 /CUMM (130-400); RBC DISTRIBUTION WIDTH 15.9 % (11.5-14.5); RED BLOOD CELL CT 3.95 /CUMM (4.70-6.10)
[2016-12-26 08:24] VITALS: BP 158/72
--- NOTE | 2016-12-26 08:51 | PN- Housestaff ---
JOHN RAYO 12/26/16 0851: Subjective Follow-up For: Syncope Dementia Parkinson's HTN/HLD Tele-Events Since Last Visit: First-degree heart block, TX interval 0.24 heart rate 70s Subjective: Seen and examined the patient, lying comfortably in bed. Denies chest pain, palpitations or weakness. Patient was walked this morning, complaining of mild dizziness however was able to walk up and down the [place] with an assist of 1. Review of Systems Constitutional: Denies: chills, diaphoresis, fever, malaise, weakness, unexplained weight loss. Cardiovascular: Denies: chest pain, edema, orthopena, palpitations, peripheral edema, syncope. Respiratory: Denies: no symptoms, cough, hemoptysis, orthopnea, short of breath, sputum production, stridor, wheezing. Gastrointestinal: Denies: abdominal pain, bloating, constipation, diarrhea, distention, bowel incontinence, melena, nausea, bloody stool, changes in stool, vomiting, steatorrhea. Objective Last 24 Hrs of Vital Signs/I&O Vital Signs Date Time Temp Pulse Resp B/P Pulse O2 O2 Flow FiO2 Ox Delivery Rate 12/26 0930 98.2 80 16 170/70 12/26 0930 98.2 80 16 170/70 12/26 0824 158/72 12/26 0822 98.2 80 16 97 Room Air 12/26 0019 98.3 74 20 120/70 93 Room Air 12/25 1837 65 120/76 12/25 1348 126/70 12/25 0955 70 172/74 Intake & Output 12/26 1600 12/26 0800 12/26 0000 Intake Total 500 Output Total 200 400 Balance -200 100 Intake, Oral 500 Output, Urine 200 400 Physical Exam General Appearance: Alert, Oriented X3, Cooperative, No Acute Distress Cardiovascular: Regular Rate, Normal S1, Normal S2 Lungs: Clear to Auscultation, Normal Air Movement Extremities: No Edema Current Medications: Current Medications Sig/Rajani Start time Last Medication Dose Route Stop Time Status Admin Acetaminophen 650 MG Q8P PRN 12/24 1915 AC PO Amiodarone HCl 100 MG DAILY 12/25 1000 AC 12/26 PO 0930 Aspirin 81 MG DAILY 12/25 1000 AC 12/26 PO 0931 Atorvastatin Calcium 20 MG 1700 12/24 1700 AC 12/25 PO 1623 Carbidopa/Levodopa 1.5 TAB TID 12/24 2199 AC 12/26 PO 0931 Cholecalciferol 1,000 IU DAILY 12/25 1000 AC 12/26 PO 0931 Clopidogrel Bisulfate 75 MG DAILY 12/25 1000 AC 12/26 PO 0930 Donepezil HCl 10 MG DAILY 12/25 1000 AC 12/26 PO 0931 Finasteride 5 MG DAILY 12/25 1000 AC 12/26 PO 0931 Levothyroxine Sodium 0.05 MG DAILY AC 12/25 0700 AC 12/26 PO 0556 Magnesium Chloride 64 MG DAILY 12/25 1000 AC 12/26 PO 0931 Metoprolol Tartrate 12.5 MG DAILY 12/25 1000 AC 12/26 PO 0930 Midodrine 10 MG BID 12/24 2199 AC 12/25 PO 205 Quetiapine Fumarate 50 MG TID 12/24 2199 AC 12/26 PO 0931 Last 24 Hrs of Lab/Corby Results Last 24 Hrs of Labs/Mics: Laboratory Tests 12/26/16 0610: Anion Gap 12, Estimated GFR 44 L, BUN/Creatinine Ratio 22.7, CBC w Diff NO MAN DIFF REQ, RBC 3.95 L, MCV 89.9, MCH 30.1, RDW 15.9 H, MPV 9.3, Gran % 73.5, Lymphocytes % 14.8 L, Monocytes % 8.9, Eosinophils % 2.5, Basophils % 0.3, Absolute Granulocytes 5.2, Absolute Lymphocytes 1.0 L, Absolute Monocytes 0.6, Absolute Eosinophils 0.2, Absolute Basophils 0, PUBS MCHC 33.5 Assessment/Plan Assessment: Mr. Moreno is a pleasnt 86-year-old male PMH of CT sp CABG, parkinson disease, alzheimer disease, HTN, HLD, BPH and hypothyroidism who was brought in for syncope. In the ED: VS WNL, labs unremarkable. CT head and CXR showed no acute change. Plan: # Syncope * ACS ruled out with EKG/trop negative x 4, * No arrythmia noted while overnight on insole coverer * Cardio consult appreciated, f/u rec's * Continue midodrine with holding parameters * Echo pending, f/u results * Compression stockings * TSH high to 9.7 but FT4 normal (follow up outpatient with PCP, consider euthyroid sick syndrome) and B12 normal to 392 * Continues to be dizzy on ambulation, # Dementia * Continue Donepezil 10 mg daily * Continue Quetiapine 50 mg tid # Parkinson * Continue carbidopa-levodopa # HTN * Continue metoprolol 12.5 mg daily # HLD * Continue simvastain 40 mg daily # BPH * Continue finasteride 5 mg daily # Hypothyroid * Continue levothyroxine 50 mcg daily # Continue home meds * Slowmag * Vit D 3 * Ca+D * amiodarone 100 mg daily Diet: Heart healthy DVT ppx: mech and pharm FULL CODE Problem List: 1. H/O Parkinson's disease 2. Hyperlipidemia 3. Syncope Pain Ratin Pain Location: Not applicable Pain Goal: Pain 4 or less Pain Plan: Current regimen Tomorrow's Labs & Rationales: None required NORI MONTEIRO,DARLENE 12/26/16 0915: Attending MD Review Statement Attending Statement Attending MD Statement: examined this patient, discuss w/resident/PA/AUTO SEAT COVER INSTALLER, agreed w/resident/PA/AUTO SEAT COVER INSTALLER, discussed with family, reviewed EMR data (avail), discussed with nursing, amended to note Attending Assessment/Plan: Patient seen and examined. No events overnight on telemetry. He remained in sinus rhythm degree AV block. Daughter is present at the bedside. Patient's orthostatic blood pressure has been negative however daughter reports that yesterday when patient ambulated up to the daughter he became dizzy and had to be returned back to his bed. She reports that at baseline at home he is able to tolerate more physical activity. Daughter reports that this morning while urinating patient noted bright red blood. He denies any trauma. He did not have any instrumentation during this admission. Recommendations: -Patient appears to be having orthostatic symptoms with activity. Vital signs have been stable. Would recommend standing or sitting for prolonged periods. Patient should utilize waist high compression stockings once available. -His supine blood pressure has been in the 170s. Follow-up with the cardiology service whether patient should have his midodrine dose increase. -Please note that patient is not on amlodipine at home. -OK to discontinue telemetry. Follow-up echocardiogram results today. -Check urinalysis.
--- NOTE | 2016-12-26 09:47 | NUR ---
PATIENT TO BATHROOM TO URINATE. PATIENT'S DAUGHTER WITH PATIENT AT THE TIME. PER PATIENT'S DAUGHTER. PATIENT HAS BLOOD INSIDE UNDERWEAR AND BLOOD IN URINE. ON ASSESSMENT PATIENT UNDERWEAR HAS SPOTS OF BRIGHT RED BLOOD ON IT. THERE WAS BLOOD NOTED IN TOILET. PATIENT VOIDED AFTER IN URINE CUP. SLIGHT HEMATURIA NOTED WITH BLOOD ON CUP. PATIENT DENIES BURNING DURING URINATION. DENIES PAIN. NO TRAUMA NOTED ON PENIS. STAVE BOLT EQUALIZER JOHN TREVIZO. DR JULIO AT BEDSIDE AND WAS INFORMED. URINE SAMPLE COLLECTED AND WILL BE SENT TO LAB.
[2016-12-26 12:47] VITALS: BP 120/74
--- NOTE | 2016-12-26 12:47 | NUR ---
PATIENT DAUGHTER REPORTED PATIENT FELT DIZZY WHILE SITTING IN CHAIR. SHE ALSO STATED PATIENT COLD AND CLAMMY AND LIPS BLUE. PATIENT WAS PUT IN BED BY DAUGHTER. ON ASSESSMENT PATIENT WARM TO TOUCH.DENIES DIZZY AT THE TIME. VSS AND DOCUMENTED IN FLOW SHEET. LUMBER STRAIGHTENED JOHN AWARE. NO INTERVENTION AT THIS TIME. PATIENT ALERT AND ORIENTATED X3. U/A WAS SENT EARLIER. WILL CONTINUE TO FOLLOW PATIENT.
--- NOTE | 2016-12-26 14:24 | PN- Cardiology ---
Subjective Subjective: The patient is feeling a little better. He states he walked out onto the [place] with assistance. He is complaining of occasional periods of dizziness. He also apparently had some bleeding from his penis according to the family. There have been no arrhythmias noted. Objective Vital Signs and I&Os Vital Signs Date Time Temp Pulse Resp B/P Pulse O2 O2 Flow FiO2 Ox Delivery Rate 12/26 1247 97.4 61 20 120/74 95 Room Air Room Air 12/26 0930 98.2 80 16 170/70 12/26 0930 98.2 80 16 170/70 12/26 0824 158/72 12/26 0822 98.2 80 16 97 Room Air 12/26 0019 98.3 74 20 120/70 93 Room Air 12/25 1837 65 120/76 Intake & Output 12/26 1600 12/26 0800 12/26 0000 12/25 1600 12/25 0800 12/25 0000 Intake Total 500 800 240 450 Output Total 200 400 600 150 Balance -200 100 200 90 450 Intake, Oral 500 800 240 450 Output, Urine 200 400 600 150 Patient 165 lb Weight Physical Exam: He is in no distress HEENT exam is normal Chest is clear Heart reveals regular rhythm and no murmurs Current Medications: Current Medications Sig/Rajani Start time Last Medication Dose Route Stop Time Status Admin Acetaminophen 650 MG Q8P PRN 12/24 1915 AC PO Amiodarone HCl 100 MG DAILY 12/25 1000 AC 12/26 PO 0930 Aspirin 81 MG DAILY 12/25 1000 AC 12/26 PO 0931 Atorvastatin Calcium 20 MG 1700 12/24 1700 AC 12/25 PO 1623 Carbidopa/Levodopa 1.5 TAB TID 12/24 2200 AC 12/26 PO 0931 Cholecalciferol 1,000 IU DAILY 12/25 1000 AC 12/26 PO 0931 Clopidogrel Bisulfate 75 MG DAILY 12/25 1000 AC 12/26 PO 0930 Donepezil HCl 10 MG DAILY 12/25 1000 AC 12/26 PO 0931 Finasteride 5 MG DAILY 12/25 1000 AC 12/26 PO 0931 Levothyroxine Sodium 0.05 MG DAILY AC 12/25 0700 AC 12/26 PO 0556 Magnesium Chloride 64 MG DAILY 12/25 1000 AC 12/26 PO 0931 Metoprolol Tartrate 12.5 MG DAILY 12/25 1000 AC 12/26 PO 0930 Midodrine 10 MG BID 12/24 2199 AC 12/25 PO 2050 Quetiapine Fumarate 50 MG TID 12/24 2199 AC 12/26 PO 0931 Results Last 48 Hrs of Labs/Mics: Laboratory Tests 12/26/16 1042: Urine Color YEL, Urine Clarity HAZ[place] H, Urine pH 6.0, Ur Specific [place] 1.020, Urine Protein 100 H, Urine Ketones NEG, Urine Nitrite NEG, Urine Bilirubin NEG, Urine Urobilinogen 0.2, Ur Leukocyte Esterase NEG, Ur Microscopic SEDIMENT EXAMINED, Urine RBC PACKD H, Urine WBC 1-3 H, Ur Epithelial Cells FEW, Urine Hemoglobin LARGE H, Urine Glucose NEG 12/26/16 0610: Anion Gap 12, Estimated GFR 44 L, BUN/Creatinine Ratio 22.7, CBC w Diff NO MAN DIFF REQ, RBC 3.95 L, MCV 89.9, MCH 30.1, RDW 15.9 H, MPV 9.3, Gran % 73.5, Lymphocytes % 14.8 L, Monocytes % 8.9, Eosinophils % 2.5, Basophils % 0.3, Absolute Granulocytes 5.2, Absolute Lymphocytes 1.0 L, Absolute Monocytes 0.6, Absolute Eosinophils 0.2, Absolute Basophils 0, PUBS MCHC 33.5 12/25/16 0823: Troponin I 0.06 12/24/16 1852: Troponin I 0.06 Assessment/Plan Assessment/Plan The patient has not had any cardiac events. He has had no arrhythmias. His enzymes are negative. He remains on metoprolol and midodrine. He is doing better on ambulation. He should continue to increase his activities with assistance and a decision made whether to send him home or to short-term rehabilitation. Telemetry can be discontinued at this time. Continue telemetry? No
[2016-12-26 15:42] VITALS: BP 126/72
[2016-12-26 22:00] VITALS: BP 150/70
--- NOTE | 2016-12-27 07:25 | PN- Housestaff ---
AGGIE MONTEIRO,LETICIA 12/27/16 0724: Subjective Follow-up For: syncope Subjective: Pt was seen this morning. He reported walking with his daughter last night without feeling dizzy (but pt is not sure if he is remembering things correctly) . Hematuria persists and his daughter is very concerned and requested urology workup. I called urology service, someone will come see the pt today, unsure who is environmental health officer, Dr. Bucio vs Dr. Toro. UA from yesterday showed packed RBC and large hg. His bed had stains from bloody urine. It is unknown how long the hematuria has been going on, as he might have thrown away his briefs that were stained with blood, as per his daughter. PT recommended home PT. Will repeat orthostats today. LBM this am. Review of Systems Constitutional: Denies: chills, fever. EENTM: Denies: visual changes. Cardiovascular: Denies: chest pain. Respiratory: Denies: cough, short of breath. Gastrointestinal: Denies: abdominal pain. Genitourinary: Reports: hematuria. Denies: dysuria. Objective Last 24 Hrs of Vital Signs/I&O Vital Signs Date Time Temp Pulse Resp B/P Pulse O2 O2 Flow FiO2 Ox Delivery Rate 12/27 0827 98.0 76 20 160/88 94 Room Air 12/26 2200 98.2 67 20 150/70 95 Room Air 12/26 1542 98.1 59 18 126/72 96 Room Air 12/26 1247 97.4 61 20 120/74 95 Room Air Room Air 12/26 0930 98.2 80 16 170/70 12/26 0930 98.2 80 16 170/70 Intake & Output 12/27 1600 12/27 0800 12/27 0000 Intake Total 100 100 Output Total 725 Balance -625 100 Intake, Oral 100 100 Output, Urine 725 Physical Exam General Appearance: Alert, Oriented X3, Cooperative, No Acute Distress Skin: dry skin HEENT: Atraumatic Cardiovascular: Regular Rate, Normal S1, Normal S2, No Murmurs, Gallops, Rubs Lungs: Clear to Auscultation, Normal Air Movement Abdomen: Normal Bowel Sounds, Soft, No Tenderness Extremities: No Edema Current Medications: Current Medications Sig/Rajani Start time Last Medication Dose Route Stop Time Status Admin Acetaminophen 650 MG Q8P PRN 12/24 1915 AC PO Amiodarone HCl 100 MG DAILY 12/25 1000 AC 12/26 PO 0930 Aspirin 81 MG DAILY 12/25 1000 AC 12/26 PO 0931 Atorvastatin Calcium 20 MG 1700 12/24 1700 AC 12/26 PO 1641 Carbidopa/Levodopa 1.5 TAB TID 12/24 2200 AC 12/26 PO 2133 Cholecalciferol 1,000 IU DAILY 12/25 1000 AC 12/26 PO 0931 Clopidogrel Bisulfate 75 MG DAILY 12/25 1000 AC 12/26 PO 0930 Donepezil HCl 10 MG DAILY 12/25 1000 AC 12/26 PO 0931 Finasteride 5 MG DAILY 12/25 1000 AC 12/26 PO 0931 Levothyroxine Sodium 0.05 MG DAILY AC 12/25 0700 AC 12/27 PO 0720 Magnesium Chloride 64 MG DAILY 12/25 1000 AC 12/26 PO 0931 Metoprolol Tartrate 12.5 MG DAILY 12/25 1000 AC 12/26 PO 0930 Midodrine 10 MG BID 12/24 2199 AC 12/25 PO 205 Quetiapine Fumarate 50 MG TID 12/24 220 AC 12/26 PO 2130 Last 24 Hrs of Lab/[place] Results Last 24 Hrs of Labs/Mics: Laboratory Tests 12/26/16 1042: Urine Color YEL, Urine Clarity HAZY H, Urine pH 6.0, Ur Specific [place] 1.020, Urine Protein 100 H, Urine Ketones NEG, Urine Nitrite NEG, Urine Bilirubin NEG, Urine Urobilinogen 0.2, Ur Leukocyte Esterase NEG, Ur Microscopic SEDIMENT EXAMINED, Urine RBC PACKD H, Urine WBC 1-3 H, Ur Epithelial Cells FEW, Urine Hemoglobin LARGE H, Urine Glucose NEG Assessment/Plan Assessment: Mr. Moreno is a pleasnt 86-year-old male PMH of [place] sp CABG, parkinson disease, alzheimer disease, HTN, HLD, BPH and hypothyroidism who was brought in for syncope. In the ED: VS WNL, labs unremarkable. CT head and CXR showed no acute change. 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 * Cardio consult appreciated, f/u rec's * Continue midodrine with holding parameters * Echo pending, f/u results * Compression stockings * TSH high to 9.7 but FT4 normal (follow up outpatient with PCP, consider euthyroid sick syndrome) and B12 normal to 392 # Dementia * Continue Donepezil 10 mg daily * Continue Quetiapine 50 mg tid # Parkinson * Continue carbidopa-levodopa # HTN * Continue metoprolol 12.5 mg daily # HLD * Continue simvastain 40 mg daily # BPH * Continue finasteride 5 mg daily # Hypothyroid * Continue levothyroxine 50 mcg daily # Continue home meds * Slowmag * Vit D 3 * Ca+D * amiodarone 100 mg daily Diet: Heart healthy DVT ppx: [facility] (hold pharm for hematuria) FULL CODE Problem List: 1. Syncope 2. Hematuria Pain Ratin Pain Location: none Pain Goal: Remain pain free Pain Plan: none Tomorrow's Labs & Rationales: cbc for hematuria DVT/Prophylaxis: mechanical NORI MONTEIRO,DARLENE 12/27/16 1127: Attending MD Review Statement Attending Statement Attending MD Statement: examined this patient, discuss w/resident/PA/CNC OPERATOR, agreed w/resident/PA/CNC OPERATOR, discussed with family, reviewed EMR data (avail), discussed with nursing, discussed with case mgmt, amended to note Attending Assessment/Plan: Patient's exercise tolerance has increased. Family reports that he is able to ambulate longer distances before complain of dizziness. He has been no other reports of loss of consciousness during his hospital stay. He is medically stable to be discharged. He is to continue his blood pressure regimen as well as midodrine. Initially midodrine was held due to concerns of hypertension however this medication may be continued as long as his systolic blood pressures less than 180. Attenuation for the patient is his hematuria which she developed yesterday. He has been having bright red blood in his urine. Urinalysis on admission was negative for blood. On urinalysis does confirm hematuria. He does have a history of an enlarged prostate that is on medication for this. His hematuria is most likely secondary to his enlarged prostate. Recommendations: -Obtain bladder scan to rule out urinary retention. -Obtain a renal sonogram to rule out renal stones or masses. -Follow-up with the urology service. -He has no significant urinary retention sonogram is negative he may be discharged home. He is not having gross hematuria. -Follow-up with the cardiology service regarding his dual antiplatelet therapy. We may be able to discontinue Plavix if okay with the cardiology service.
[2016-12-27 08:27] VITALS: BP 160/88
[2016-12-27 09:16] VITALS: BP 130/62
--- NOTE | 2016-12-27 11:24 | Cons- Urology ---
General Information and HPI Consulting Request Date of Consult: 12/27/16 Requested By: DARLENE Bahena M.D Reason for Consult: Gross hematuria Source of Information: patient, family, old records Exam Limitations: no limitations History of Present Illness: This patient has a hx of urinary frequency and nocturia and has been followed in our office for this. He has been on finasteride. He was admitted to the hospital after a fall and has developed painless gross hematuria. Urine C&S is negative for infection. Creatinine is 1.5. He is on ASA and plavix. He has about a 70 year smoking hx. He has a hx of Parkinsons and dementia. Allergies/Medications Allergies: Coded Allergies: Sulfa (Sulfonamide Antibiotics) (SULFA - ?RXN DOESNT REMEMBER 12/24/16) dipyridamole (From AGGRENOX) (UNKNOWN DOESNT REMEMBER 12/24/16) Home Med List: Amiodarone HCl 200 MG TABLET 0.5 TAB PO DAILY HEART (Reported) Aspirin (Children's Aspirin) 81 MG TAB.CHEW 1 TAB PO DAILY HEART/BLOOD ( Reported) Calcium Carbonate/Vitamin D3 (Calcium 500 + D Tablet) (Unknown Strength) TABLET (Unknown Dose) PO DAILY SUPPLEMENT (Reported) Carbidopa/Levodopa (Carbidopa-Levodopa 25-100 Tab) 25 MG-100 MG TABLET 1.5 TAB PO DAILY PARKINSONS (Reported) Cholecalciferol (Vitamin D3) (Vitamin D3) 1,000 UNIT CAPSULE 1 CAP PO DAILY SUPPLEMENT (Reported) Clopidogrel Bisulfate (Clopidogrel) 75 MG TABLET 1 TAB PO DAILY BLOOD THINNER (Reported) Dextran 70/Hypromellose/Pf (Tears Naturale Free Drops) 0.1 %-0.3 % DROPERETTE 2 DROP OP DAILY EYE(S) (Reported) Donepezil HCl (Aricept) 10 MG TABLET 1 TAB PO QHS DEMENTIA (Reported) Finasteride 5 MG TABLET 1 TAB PO DAILY PROSTATE (Reported) Levothyroxine Sodium (Synthroid) 50 MCG TABLET 1 TAB PO DAILY THYROID ( Reported) Magnesium Chloride (Slow-Mag) (Unknown Strength) TABLET.DR 1 TAB PO DAILY SUPPLEMENT (Reported) Metoprolol Tartrate 25 MG TABLET 0.5 TAB PO DAILY HEART (Reported) Midodrine HCl 10 MG TABLET 1 TAB PO BID LOW BP (Reported) Multivitamin W/Iron, Minerals (Spectravite Senior) 1 EACH TABLET 1 TAB PO DAILY SUPPLEMENT (Reported) Quetiapine Fumarate 50 MG TABLET 1 TAB PO TID MENTAL HEALTH (Reported) Saw [place] Fruit (Saw [place]) 450 MG CAPSULE 1 CAP PO DAILY Supplement ( Reported) Simvastatin (Simvastatin*) 40 MG TABLET 1 TAB PO QPM CHOLESTEROL (Reported) Current Medications: Current Medications Sig/Rajani Start time Last Medication Dose Route Stop Time Status Admin Acetaminophen 650 MG Q8P PRN 12/24 1915 AC PO Amiodarone HCl 100 MG DAILY 12/25 1000 AC 12/26 PO 0930 Aspirin 81 MG DAILY 12/25 1000 AC 12/26 PO 0931 Atorvastatin Calcium 20 MG 1700 12/24 1700 AC 12/26 PO 1641 Carbidopa/Levodopa 1.5 TAB TID 12/24 2200 AC 12/26 PO 2133 Cholecalciferol 1,000 IU DAILY 12/25 1000 AC 12/26 PO 0931 Clopidogrel Bisulfate 75 MG DAILY 12/25 1000 AC 12/26 PO 0930 Donepezil HCl 10 MG DAILY 12/25 1000 AC 12/26 PO 0931 Finasteride 5 MG DAILY 12/25 1000 AC 12/26 PO 0931 Levothyroxine Sodium 0.05 MG DAILY AC 12/25 0700 AC 12/27 PO 0720 Magnesium Chloride 64 MG DAILY 12/25 1000 AC 12/26 PO 0931 Metoprolol Tartrate 12.5 MG DAILY 12/25 1000 AC 12/26 PO 0930 Midodrine 10 MG BID 12/24 2200 AC 12/25 PO 2051 Quetiapine Fumarate 50 MG TID 12/24 2200 AC 12/26 PO 2130 Past History Medical History Blood Transfusion Hx: Yes Neurological: Alzheimer's disease, Parkinson's disease, vertigo EENT: cataracts, glaucoma Cardiovascular: hypertension, hyperlipidemia, LEFT VENTRICLE BYPASS CABG 2014 Respiratory: pneumonia Gastrointestinal: BPH diverticulosis POLLOPS Hepatic: NONE Renal: chronic kidney disease (stage 1) Musculoskeletal: osteoarthritis Psychiatric: NONE Endocrine: hypothyroidism, vitamin D deficiency Blood Disorders: anemia 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 Home Who Do You Live With? spouse Services at Home: None Smoking Status: Former Smoker ETOH Use: denies use Illicit Drug Use: denies illicit drug use Functional Ability Ambulation: independent Exam & Diagnostic Data Vital Signs and I&O Vital Signs Date Time Temp Pulse Resp B/P Pulse O2 O2 Flow FiO2 Ox Delivery Rate 12/27 0916 78 130/62 12/27 0827 98.0 76 20 160/88 94 Room Air 12/26 2200 98.2 67 20 150/70 95 Room Air 12/26 1542 98.1 59 18 126/72 96 Room Air 12/26 1247 97.4 61 20 120/74 95 Room Air Room Air Intake & Output 12/27 1600 12/27 0800 12/27 0000 12/26 1600 12/26 0800 12/26 0000 Intake Total 100 100 480 500 Output Total 725 100 200 400 Balance -625 100 380 -200 100 Intake, Oral 100 100 480 500 Output, Urine 725 100 200 400 No distress Back: No CVA tenderness Abd: soft and non tender. Bladder not palpable Genitalia: normal male Laboratory Tests 12/26 1226 Urines Urine Color Cancelled Urine Clarity Cancelled Urine pH Cancelled Ur Specific [place] Cancelled Urine Protein Cancelled Urine Ketones Cancelled Urine Nitrite Cancelled Urine Bilirubin Cancelled Urine Urobilinogen Cancelled Ur Leukocyte Esterase Cancelled Ur Microscopic Cancelled Urine Hemoglobin Cancelled Urine Glucose Cancelled Assessment/Plan Assessment/Plan Imp: Gross hematuria of unclear cause Hx of BPH Hx of dementia and Parkinson's Plan: Would order non contrast CT of abd and pelvis. Would avoid contrast with creat of 1.5 Would send urine for cytology If safe to hold ASA and plavix would do so. If not and is safe to hold one of them then would do that Continue finasteride Will eventually need cystoscopy, either as in or out patient depending on course Consult Acknowledgment - Thank you for your consult request.
[2016-12-27 11:33] VITALS: BP 130/62
--- NOTE | 2016-12-27 11:37 | NUR ---
Physical Therapy: Pt observed ambulating around unit with family. Steady gait noted with DECORATING AND ASSEMBLY SUPERVISOR of family. Acute skilled PT is no longer indicated at this time. Please reconsult if pt's functional mobility declines. Thank you.
--- NOTE | 2016-12-27 11:46 | PN- Cardiology ---
Subjective Subjective: Patient had another episode of lightheadedness today while ambulating. He continues to have gross hematuria. No chest pain. No palpitations. No shortness of breath. No diaphoresis. Objective Vital Signs and I&Os Vital Signs Date Time Temp Pulse Resp B/P Pulse O2 O2 Flow FiO2 Ox Delivery Rate 12/27 1133 82 130/62 12/27 0916 78 130/62 12/27 0827 98.0 76 20 160/88 94 Room Air 12/26 2200 98.2 67 20 150/70 95 Room Air 12/26 1542 98.1 59 18 126/72 96 Room Air 12/26 1247 97.4 61 20 120/74 95 Room Air Room Air Intake & Output 12/27 1600 12/27 0800 12/27 0000 12/26 1600 12/26 0800 12/26 0000 Intake Total 100 100 480 500 Output Total 725 100 200 400 Balance -625 100 380 -200 100 Intake, Oral 100 100 480 500 Output, Urine 725 100 200 400 Physical Exam: Gen: NAD HEENT: normal Lungs: clear to auscultation, normal resp. effort Heart: RRR, S1, S2, no murmurs Abdomen: Soft, nontender, no masses Extremities: No clubbing, cyanosis, or edema. Neuro: Alert and oriented x 3, cranial nerves intact Current Medications: Current Medications Sig/Rajani Start time Last Medication Dose Route Stop Time Status Admin Acetaminophen 650 MG Q8P PRN 12/24 191 AC PO Amiodarone HCl 100 MG DAILY 12/25 1000 AC 12/27 PO 1133 Aspirin 81 MG DAILY 12/25 1000 AC 12/26 PO 0931 Atorvastatin Calcium 20 MG 1700 12/24 1700 AC 12/26 PO 1641 Carbidopa/Levodopa 1.5 TAB TID 12/24 2200 AC 12/27 PO 1133 Cholecalciferol 1,000 IU DAILY 12/25 1000 AC 12/27 PO 1131 Clopidogrel Bisulfate 75 MG DAILY 12/25 1000 AC 12/26 PO 0930 Donepezil HCl 10 MG DAILY 12/25 1000 AC 12/27 PO 1133 Finasteride 5 MG DAILY 12/25 1000 AC 12/27 PO 1132 Levothyroxine Sodium 0.05 MG DAILY AC 12/25 0700 AC 12/27 PO 0720 Magnesium Chloride 64 MG DAILY 12/25 1000 AC 12/27 PO 1134 Metoprolol Tartrate 12.5 MG DAILY 12/25 1000 AC 12/27 PO 1133 Midodrine 10 MG BID 12/24 2199 AC 12/27 PO 113 Quetiapine Fumarate 50 MG TID 12/24 2199 AC 12/27 PO 1132 Results Last 48 Hrs of Labs/Mics: Laboratory Tests 12/26/16 1226: Urine Color Cancelled, Urine Clarity Cancelled, Urine pH Cancelled, Ur Specific [place] Cancelled, Urine Protein Cancelled, Urine Ketones Cancelled, Urine Nitrite Cancelled, Urine Bilirubin Cancelled, Urine Urobilinogen Cancelled, Ur Leukocyte Esterase Cancelled, Ur Microscopic Cancelled, Urine Hemoglobin Cancelled, Urine Glucose Cancelled 12/26/16 1042: Urine Color YEL, Urine Clarity HAZY H, Urine pH 6.0, Ur Specific [place] 1.020, Urine Protein 100 H, Urine Ketones NEG, Urine Nitrite NEG, Urine Bilirubin NEG, Urine Urobilinogen 0.2, Ur Leukocyte Esterase NEG, Ur Microscopic SEDIMENT EXAMINED, Urine RBC PACKD H, Urine WBC 1-3 H, Ur Epithelial Cells FEW, Urine Hemoglobin LARGE H, Urine Glucose NEG 12/26/16 0610: Anion Gap 12, Estimated GFR 44 L, BUN/Creatinine Ratio 22.7, CBC w Diff NO MAN DIFF REQ, RBC 3.95 L, MCV 89.9, MCH 30.1, RDW 15.9 H, MPV 9.3, Gran % 73.5, Lymphocytes % 14.8 L, Monocytes % 8.9, Eosinophils % 2.5, Basophils % 0.3, Absolute Granulocytes 5.2, Absolute Lymphocytes 1.0 L, Absolute Monocytes 0.6, Absolute Eosinophils 0.2, Absolute Basophils 0, PUBS MCHC 33.5 Assessment/Plan Assessment/Plan Assessment: 1. CAD, status post single-vessel bypass 2. Orthostatic hypotension 3. Hematuria on aspirin and Plavix 4. Syncope Plan: * Discontinue Plavix given hematuria. * Continue low-dose aspirin if possible * Continue midodrine for orthostatic hypotension * Continue other cardiac medications. Continue telemetry? Yes
--- NOTE | 2016-12-27 14:12 | Discharge Summary ---
Visit Information Visit Dates Admission Date: 12/24/16 Discharge Date: 12/27/16 Hospital Course Course Attending Physician: DARLENE JULIO M.D [facility]: 86-year-old male PMH of PR sp CABG, parkinson disease, alzheimer disease, HTN, HLD, BPH, was brought in for syncope X 2 at home, associated with dizziness and BP 80/40. The syncope was most likely due to orthostatic hypotension. No cardiac events on telemetry. No repeated episodes of syncope. He had supine hypertension and postural dizziness, which improved with midodrine. He developed hematuria on day # 2 of admission, which was not present on admission. No renal US and CT abd and pelvis findings found to explain for hematuria. Pt will follow up with Dr. Bucio for cystoscopy. Due to the hematuria, Dr. Zheng from cardiology agreed to take him off plavix, and keep him on aspirin. Pt will follow up with Dr. Centeno. TSH was high to 9.7 but FT4 normal, follow up outpatient with PCP, consider euthyroid sick syndrome. Recommend checking h/h OP as well for hematuria. For more detailed hospital course, see below: # Syncope * ACS ruled out with EKG/trop negative x 3 * No arrythmia noted while on tele * Cardio consulted * Continue midodrine * TSH high to 9.7 but FT4 normal (follow up outpatient with PCP, consider euthyroid sick syndrome) and B12 normal to 392 # Hematuria * Urology consult with Dr. Bucio. OP cystoscopy. # Dementia * Continue Donepezil 10 mg daily * Continue Quetiapine 50 mg tid # Parkinson * Continue carbidopa-levodopa # HTN * Continue metoprolol 12.5 mg daily # HLD * Continue simvastain 40 mg daily # BPH * Continue finasteride 5 mg daily # Hypothyroid * Continue levothyroxine 50 mcg daily # Continue home meds * Slowmag * Vit D 3 * Ca+D * amiodarone 100 mg daily Allergies: Coded Allergies: Sulfa (Sulfonamide Antibiotics) (SULFA - ?RXN DOESNT REMEMBER 12/24/16) dipyridamole (From AGGRENOX) (UNKNOWN DOESNT REMEMBER 12/24/16) Significant Procedures: EXAMINATION: US RETROPERITONEAL COMPLETE (RENAL) CLINICAL INFORMATION: Hematuria. COMPARISON: 11/19/2013 TECHNIQUE: Real-time imaging of the kidneys and bladder. FINDINGS: RIGHT KIDNEY: 9.4 x 4.9 x 4.3 cm (SAG x AP x TRV). The kidney is normal in size, contour, and echogenicity. Renal cortical thickness is normal. No calculi or focal parenchymal lesions. No hydronephrosis. There is a 7 mm cyst in the interpolar region of the right kidney. LEFT KIDNEY: 9.2 x 5.5 x 3.6 cm (SAG x AP x TRV). The kidney is normal in size, contour, and echogenicity. Renal cortical thickness is normal. No calculi or focal parenchymal lesions. No hydronephrosis. BLADDER: Partially distended. Bilateral ureteral jets are not demonstrated. The prostate measures 4.7 x 4.5 x 5.8 cm for a total volume of 64 mL. IMPRESSION: 7 mm right renal cyst. No abnormality to explain the patient's hematuria. EXAMINATION: CT ABDOMEN AND PELVIS WITHOUT CONTRAST CLINICAL INFORMATION: Hematuria. Evaluate for mass. COMPARISON: Renal ultrasound dated 12/27/2016 TECHNIQUE: Multidetector volumetric imaging was performed from the superior aspect of the liver through the pubic symphysis. Sagittal and coronal reformatted images were obtained on the technologist's workstation. DLP: 328.13 mGy-cm FINDINGS: LUNG BASES: Minor dependent atelectatic changes noted in bilateral lower lobes. LIVER, GALLBLADDER, AND BILIARY TREE: The liver is normal in size, shape, and attenuation. No focal hepatic lesion or biliary ductal dilatation is present. The gallbladder is unremarkable with no evidence of radiopaque gallstones, gallbladder wall thickening, or obvious pericholecystic inflammatory changes. PANCREAS: Unremarkable. SPLEEN: Unremarkable. ADRENAL GLANDS: Unremarkable. KIDNEYS AND URETERS: Calcific density noted in the mid right kidney measuring approximately 0.5 cm may represent nonobstructing calculus versus vascular calcification. Vascular calcification noted in the region of left renal pelvis. There is atherosclerotic disease with calcification noted at the ostia of bilateral renal arteries, left greater than right. No evidence of hydronephrosis. No suspicious cortical abnormality noted on the noncontrast images. BLADDER: Mild diffuse bladder wall thickening likely due to incomplete distention. Enlarged prostate gland protruding into the floor of the urinary bladder. GASTROINTESTINAL TRACT: Stomach is filled with recently ingested food material. Colonic diverticulosis involving the descending and sigmoid colon. No evidence of acute diverticulitis. Fecal material noted throughout the large bowel and rectum. No acute bowel pathology. Unremarkable appendix. ABDOMINAL WALL: No significant hernia is appreciated. LYMPH NODES: Normal. VASCULAR: Diffuse atherosclerotic disease with intimal calcification of aorta and aortic branches. Calcification noted at the ostia of bilateral renal arteries, left greater than right. Single bilateral renal arteries. PELVIC VISCERA: Lobulated enlarged prostate gland measuring approximately 4.5 x 5 x 5.5 cm (series 2 image 78 and sagittal image 62) OSSEOUS STRUCTURES: Degenerative changes noted in the lower thoracic and lumbar spine. Probable chronic bilateral pars interarticularis defect no gross evidence of spondylolisthesis. There is mild decrease in the intervertebral disc space L5-S1 level. IMPRESSION: 1. Nonobstructing calculus versus vascular calcification mid right kidney. 2. No evidence of obstructing stones or hydronephrosis. 3. Enlarged prostate gland. 4. Colonic diverticulosis. No evidence of acute diverticulitis. 5. Probable chronic bilateral L5 pars interarticularis defect. No evidence of spondylolisthesis. DICTATED BY: MANDY CARLTON MD DATE/TIME DICTATED:12/27/161499 EXAMINATION: CT HEAD AND CERVICAL SPINE. CLINICAL INFORMATION: Fall. Evaluate for intracranial hemorrhage. Evaluate for cervical spine fracture. COMPARISON: Brain MRI 01/05/2012. CT head 08/24/2008. TECHNIQUE: Clerical Manager images were obtained. CT acquisition of the head and cervical spine was performed without intravenous administration of contrast. Data was reformatted into multiplanar images at the acquisition workstation. DLP: 934.86 mGy-cm. FINDINGS: Head: There is no acute intracranial hemorrhage or abnormal extra axial collection. No intracranial mass effect or midline shift. Lateral and third ventricles are proportionate to the subarachnoid spaces. There is no hydrocephalus. Ill-defined foci of hypoattenuation are visualized throughout the periventricular white matter that most likely represent a chronic manifestation of small vessel ischemia. Moses-white matter differentiation is grossly preserved and there is no evidence of acute territorial infarct. The calvarium and skull base are intact. Mastoid air cells and middle ear cavities are well aerated. There is paranasal sinus disease within both of the maxillary sinuses and left sphenoid chamber with associated circumferential chronic appearing mucoperiosteal changes. Mild paranasal sinus disease within the ethmoid air cells. Cervical spine: There is slight nonspecific reversal of the cervical lordosis. Vertebral alignment is otherwise maintained in the sagittal dimension. Vertebral body heights are preserved. There is no acute fracture. No abnormal prevertebral soft tissue swelling. There is loss of intervertebral disc height with associated sclerotic degenerative endplate changes at C3-C4 and C5-C6. Grossly there is no evidence of canal compromise. Uncovertebral joint spurring causes no more than mild bilateral neuroforaminal encroachment at C5-C6. Heavily calcified atheromatous plaque involves both carotid bifurcations. Soft tissues of the neck are otherwise unremarkable. Pleural-parenchymal scarring is visualized at the apices of both lungs. IMPRESSION: Head: No acute intracranial hemorrhage. There are numerous chronic small vessel ischemic changes throughout the periventricular white matter. Chronic paranasal sinus disease. Cervical spine: No acute cervical spine fracture. There is degenerative spondylosis at C3-C4 and C5-C6. Grossly no evidence of canal compromise. Hypertrophic uncovertebral joint osteophytes cause mild bilateral neuroforaminal encroachment at C5-C6. DICTATED BY: KELLY MONTEIRO,FELICITAS Edward DATE/TIME DICTATED:12/24/161254 EXAMINATION: XR PORTABLE CHEST CLINICAL INFORMATION: Syncope. Assess for cardiomegaly. COMPARISON: Report from chest radiography 08/09/2015. TECHNIQUE: Portable AP view of the chest was obtained. FINDINGS: The lungs are well expanded. No focal consolidation, pleural effusion, pulmonary edema, or pneumothorax. No evidence of cardiomegaly when adjusting for technical factors. Aortic atherosclerotic calcification. Sternotomy wires. No acute osseous abnormality. IMPRESSION: No acute pulmonary pathology demonstrated. DICTATED BY: DANO LIN MD DATE/TIME DICTATED:12/24/161144 Disposition Summary Disposition Principal Diagnosis: Syncope most likely due to orthostatic hypotension Additional Diagnosis: Hematuria Discharge Disposition: home health services Discharge Instructions General Discharge Information Code Status: Full Code Patient's Diet: Heart Healthy Patient's Activity: As tolerated Follow-Up Instructions/Appts: You were seen/treated for: - Syncope - Hematuria Special Instructions: - Please follow up with your PCP within a week of discharge. - Please return to the hospital if her symptoms not improve/worsen. - Please follow up with urology, Dr. Bucio, for cystoscopy to further evaluate hematuria. - Please stop taking plavix due to the hematuria. Please follow-up with your court manager, Dr. Centeno within a week of discharge. Medications at Discharge Discharge Medications: Stop taking the following medications: Clopidogrel Bisulfate (Clopidogrel) 75 MG TABLET ORAL DAILY Continue taking these medications: Donepezil HCl (Aricept) 10 MG TABLET 1 Tablet ORAL TAKE AT BEDTIME Comments: Last Taken: 12/27/16 Time: 1130 Simvastatin (Simvastatin*) 40 MG TABLET 1 Tablet ORAL Every night Comments: LIPITOR GIVEN 12/26/16 @ 1630 Finasteride (Finasteride) 5 MG TABLET 1 Tablet ORAL DAILY Comments: Last Taken: 12/27/16 Time: 1130 Cholecalciferol (Vitamin D3) (Vitamin D3) 1,000 UNIT CAPSULE 1 Capsule ORAL DAILY Comments: Last Taken: 12/27/16 Time: 1130 Carbidopa/Levodopa (Carbidopa-Levodopa 25-100 Tab) 25 MG-100 MG TABLET 1.5 Tablet ORAL DAILY Comments: Last Taken: 12/27/16 Time: Magnesium Chloride (Slow-Mag) (Unknown Strength) TABLET. 1 Tablet ORAL DAILY Comments: Last Taken: 12/27/16 Time: 1130 Amiodarone HCl (Amiodarone HCl) 200 MG TABLET 0.5 Tablet ORAL DAILY Comments: Last Taken: 12/27/16 Time: 1130 Aspirin (Children's Aspirin) 81 MG TAB.CHEW 1 Tablet ORAL DAILY Comments: Last Taken: Time: Dextran 70/Hypromellose/Pf (Tears Naturale Free Drops) 0.1 %-0.3 % DROPERETTE 2 DROP OPHTHALMIC DAILY Comments: PREVIOUSLY NOTED IN [facility] Levothyroxine Sodium (Synthroid) 50 MCG TABLET 1 Tablet ORAL DAILY Comments: Last Taken: 12/27/16 Time: 0730 Metoprolol Tartrate (Metoprolol Tartrate) 25 MG TABLET 0.5 Tablet ORAL DAILY Qty = 30 Comments: Last Taken: 12/27/16 Time: 1130 Midodrine HCl (Midodrine HCl) 10 MG TABLET 1 Tablet ORAL TWICE DAILY Qty = 60 Comments: Last Taken: 12/27/16 Time: 1130 Quetiapine Fumarate (Quetiapine Fumarate) 50 MG TABLET 1 Tablet ORAL THREE TIMES DAILY Qty = 90 Comments: Last Taken: 12/27/16 Time: Calcium Carbonate/Vitamin D3 (Calcium 500 + D Tablet) (Unknown Strength) TABLET Unknown Dose ORAL DAILY Comments: NOT GIVEN IN HOSPITAL Multivitamin W/Iron, Minerals (Spectravite Senior) 1 EACH TABLET 1 Tablet ORAL DAILY Comments: NOT GIVEN IN HOSPITAL Saw Cherokee Fruit (Saw Cherokee) 450 MG CAPSULE 1 Capsule ORAL DAILY Comments: NOT GIVEN IN HOSPITAL Copies To: BARTOLO RAMIREZ DO; JUAQUIN MONTEIRO,EDUARDO Gonzalez; Sheri CENTENO MD Attending MD Review Statement Documenting Attending: DARLENE JULIO M.D Other Findings: I agree with the discharge summary.
--- NOTE | 2016-12-27 15:23 | CT SCAN REPORT ---
EXAMINATION: CT ABDOMEN AND PELVIS WITHOUT CONTRAST CLINICAL INFORMATION: Hematuria. Evaluate for mass. COMPARISON: Renal ultrasound dated 12/27/2016 TECHNIQUE: Multidetector volumetric imaging was performed from the superior aspect of the liver through the pubic symphysis. Sagittal and coronal reformatted images were obtained on the technologist's workstation. DLP: 328.13 mGy-cm FINDINGS: LUNG BASES: Minor dependent atelectatic changes noted in bilateral lower lobes. LIVER, GALLBLADDER, AND BILIARY TREE: The liver is normal in size, shape, and attenuation. No focal hepatic lesion or biliary ductal dilatation is present. The gallbladder is unremarkable with no evidence of radiopaque gallstones, gallbladder wall thickening, or obvious pericholecystic inflammatory changes. PANCREAS: Unremarkable. SPLEEN: Unremarkable. ADRENAL GLANDS: Unremarkable. KIDNEYS AND URETERS: Calcific density noted in the mid right kidney measuring approximately 0.5 cm may represent nonobstructing calculus versus vascular calcification. Vascular calcification noted in the region of left renal pelvis. There is atherosclerotic disease with calcification noted at the ostia of bilateral renal arteries, left greater than right. No evidence of hydronephrosis. No suspicious cortical abnormality noted on the noncontrast images. BLADDER: Mild diffuse bladder wall thickening likely due to incomplete distention. Enlarged prostate gland protruding into the floor of the urinary bladder. GASTROINTESTINAL TRACT: Stomach is filled with recently ingested food material. Colonic diverticulosis involving the descending and sigmoid colon. No evidence of acute diverticulitis. Fecal material noted throughout the large bowel and rectum. No acute bowel pathology. Unremarkable appendix. ABDOMINAL WALL: No significant hernia is appreciated. LYMPH NODES: Normal. VASCULAR: Diffuse atherosclerotic disease with intimal calcification of aorta and aortic branches. Calcification noted at the ostia of bilateral renal arteries, left greater than right. Single bilateral renal arteries. PELVIC VISCERA: Lobulated enlarged prostate gland measuring approximately 4.5 x 5 x 5.5 cm (series 2 image 78 and sagittal image 62) OSSEOUS STRUCTURES: Degenerative changes noted in the lower thoracic and lumbar spine. Probable chronic bilateral pars interarticularis defect no gross evidence of spondylolisthesis. There is mild decrease in the intervertebral disc space L5-S1 level. IMPRESSION: 1. Nonobstructing calculus versus vascular calcification mid right kidney. 2. No evidence of obstructing stones or hydronephrosis. 3. Enlarged prostate gland. 4. Colonic diverticulosis. No evidence of acute diverticulitis. 5. Probable chronic bilateral L5 pars interarticularis defect. No evidence of spondylolisthesis.
--- NOTE | 2016-12-27 15:43 | ULTRASOUND REPORT ---
EXAMINATION: US RETROPERITONEAL COMPLETE (RENAL) CLINICAL INFORMATION: Hematuria. COMPARISON: 11/19/2013 TECHNIQUE: Real-time imaging of the kidneys and bladder. FINDINGS: RIGHT KIDNEY: 9.4 x 4.9 x 4.3 cm (SAG x AP x TRV). The kidney is normal in size, contour, and echogenicity. Renal cortical thickness is normal. No calculi or focal parenchymal lesions. No hydronephrosis. There is a 7 mm cyst in the interpolar region of the right kidney. LEFT KIDNEY: 9.2 x 5.5 x 3.6 cm (SAG x AP x TRV). The kidney is normal in size, contour, and echogenicity. Renal cortical thickness is normal. No calculi or focal parenchymal lesions. No hydronephrosis. BLADDER: Partially distended. Bilateral ureteral jets are not demonstrated. The prostate measures 4.7 x 4.5 x 5.8 cm for a total volume of 64 mL. IMPRESSION: 7 mm right renal cyst. No abnormality to explain the patient's hematuria.
== END 2016-12-27 16:50 | disposition home health service (06) ==
LOC: ENRESERVDT → ENRESERVTM → ERH 10:47 → ENPENDDIS 13:54 → ERHI 13:54 → 1NO 13:54
PROVIDERS: Physician Assistant; Student in an Organized Health Care Education/Training Program; ADMIT Internal Medicine
DX: R55 Syncope and collapse (principal); I25.2 Old myocardial infarction; Z95.1 Presence of aortocoronary bypass graft; G20 Parkinson's disease; G30.9 Alzheimer's disease, unspecified; F02.80 Dementia in other diseases classified elsewhere, unspecified severity, without behavioral disturbance, psychotic disturbance, mood disturbance, and anxiety; I10 Essential (primary) hypertension; E78.5 Hyperlipidemia, unspecified; N40.0 Benign prostatic hyperplasia without lower urinary tract symptoms; N18.1 Chronic kidney disease, stage 1; E03.9 Hypothyroidism, unspecified; E55.9 Vitamin D deficiency, unspecified
CPT/HCPCS: 2000; 36415; 74176; 76775; 81001; 82436; 87086; 88305; 93005; 93010; 96360; 97116-GP; 97161-GP; G0378; G8978-GP; G8979-GP; J3490